=== PATIENT | female | born 1975 | race African-American/Black ===

== ENCOUNTER 2017-10-25 13:30 | Outpatient (RCR) | payer MEDICAID, SELFPAY ==
[2017-10-11 13:27] VITALS: BP 139/96; PULSE 70; RESP 18; TEMP 36.9; BMI 44.2
--- NOTE | 2017-10-11 17:35 | PCM.WC.HP ---
(1) Pressure ulcer of thigh, stage 2 Status: Acute Current Visit: Yes Code(s): L89.202 - Pressure ulcer of unspecified hip, stage 2 (2) Depression Status: Acute Current Visit: No Code(s): F32.9 - Major depressive disorder, single episode, unspecified (3) Spina bifida Status: Acute Current Visit: Yes Code(s): Q05.9 - Spina bifida, unspecified (4) Chronic venous insufficiency Status: Chronic Current Visit: Yes (5) HTN (hypertension) Status: Chronic Current Visit: Yes Code(s): I10 - Essential (primary) hypertension (6) Hypothyroidism Status: Chronic Current Visit: No Code(s): E03.9 - Hypothyroidism, unspecified (7) Obesity Status: Chronic Current Visit: Yes Code(s): E66.9 - Obesity, unspecified (8) Immobility Status: Acute Current Visit: Yes Code(s): Z74.09 - Other reduced mobility History of Present Illness Date of Service: 10/11/17 Chief Complaint: Wound on back of right thigh History of Wound: This is a 42-year-old -[place] female with a past medical history as described above presents to the wound care center with complaints of a wound on her back of her right thigh. The patient currently resides in a nursing facility due to her mobility issues. She states that she has had problems with this wound on and off for the past couple of years since 2013. Patient is a poor historian. SHe states that at the nursing facility, they have been using calmoseptine. She states that she attempts to be repositioned a couple times per night to keep pressure off of the site. She denies having a specialized low air loss mattress. She does have a chronic Cox in place. She denies any drainage, pain, or foul smell from the wound. She denies any systemic signs of infection. She denies any other associated or aggravating symptoms. Past Medical History Past Medical History: Chronic Problems Asthma (Chronic) Cellulitis, leg (Chronic) HTN (hypertension) (Chronic) Hypothyroidism (Chronic) Obesity (Chronic) Obstructive hydrocephalus (Chronic) Chronic venous insufficiency (Chronic) Allergies/Adverse Reactions: Allergies lisinopril Allergy (Verified 10/11/17 13:34) Other Home Medications: Ambulatory Orders Medication Instructions Recorded Ergocalciferol [Vitamin D] 50,000 unit PO Q7D 09/25/13 Montelukast [Singulair] 10 mg PO DAILY 09/25/13 Potassium Chloride [K-Dur] 20 meq PO DAILY 09/25/13 Oxycodone HCl/Acetaminophen 1 - 2 tablet PO Q4H PRN PRN #12 12/28/13 [Percocet 5/325] tablet AcetaAZOLAMIDE [Diamox] BID 10/11/17 Acetaminophen [Pain Relief] 500 mg PO PRN 10/11/17 Acidoph/L.bulg/Bif.b/S.thermop DAILY 10/11/17 [Bacid Caplet] Albuterol Inhaler [Ventolin Hfa] 10/11/17 Amlodipine/Benazepril [Lotrel 5 mg PO DAILY 10/11/17 10-20 MG Capsule] Cyanocobalamin [Vitamin B12] IM 10/11/17 Cyclobenzaprine HCl 10/11/17 Docusate Sodium [Colace Clear] 50 mg PO 10/11/17 Guaifenesin 400 mg PO 10/11/17 HydrOXYzine [Atarax] 20 mg PO BID 10/11/17 Loratadine 10 mg PO 10/11/17 Meloxicam 7.5 mg PO 10/11/17 Metoprolol Tartrate 25 mg PO 10/11/17 Ondansetron HCl [Zofran] 4 mg PO PRN 10/11/17 Oxybutynin Chloride [Ditropan Xl] 15 mg PO DAILY 10/11/17 Polyethylene Glycol 3350 [Miralax] PRN 10/11/17 Lives: Alf Smoking Status: Never smoker Alcohol: None Drugs: None Review of Systems Constitutional: Denies: Chills, Fever, Weight Change Eyes: Denies: Pain, Vision Change HEENT: Denies: Difficulty Hearing, Difficulty Swallowing, Sinus Congestion Cardiovascular: Denies: Chest Pain, Palpitations Respiratory: Denies: Cough, Shortness of Breath Gastrointestinal: Denies: Diarrhea, Nausea, Vomiting Genitourinary: Denies: Dysuria, Hematuria Skin: Reports: Wounds - See HPI Endocrine: Denies: Heat/ Cold Intolerance, Polydipsia, Polyuria Hematologic/ Lymphatic: Denies: Easy Bruising, Easy Bleeding - Physical Exam Vital Signs Temp Pulse Resp BP 98.4 F 70 18 139/96 H 10/11/17 13:27 10/11/17 13:27 10/11/17 13:27 10/11/17 13:27 General: Alert, Oriented x3, Cooperative, No apparent distress HEENT: PERRLA, EOMI Neck: Supple, No JVD, Negative Carotid Bruits Lungs: Clear to auscultation, Normal air movement Cardiovascular: Regular rate, Regular Rhythm Abdomen: Soft, Non Tender, Obese Extremities: No edema, Capillary Refill Less than 3 Seconds, Peripheral Pulses Normal Skin: Ulcer/ Wound Wound Measurements and Assessment WC - Nurse 1 - General Ulcer Measurement Start: 10/11/17 13:27 Freq: Status: Active Protocol: Activity Type Activity Date Activity User E-Sign Co-Sign Detail Recorded Client Recorded Date Recorded By Document 10/11/17 13:27 MW [id number] 10/11/17 13:49 MW 10/11/17 13:27 Wound Center Nurse 1 [Ulcer Assessment Protocol: MAURIZIO.WD.LOC] #1 RIGHT UPPER POST THIGH -Combined with other wound No -Current Size (cm) - Length 10.6 -Current Size (cm) - Width 6.8 -Current Size (cm) - Depth 0.1 -Total Square Cm 72.08 -Date of Last Picture (Recall this 10/11/17 field) -Photo Taken Yes -Epithelialization None Present -Tunneling No -Undermining/Tunneling No -Circular Undermining No -Exudate Amt None Present (0 %) -Wound Margin Flat & Intact -Granulation Amt Small (1-33%) -Granulation Quality [place] -Slough/Fibrin Yes -Necrosis Amt Medium (34-66%) -Necrotic Tissue Type Adherent Slough -Structure Exposed None/Limited to Skin Breakdown -Texture (Azul-wound Skin Appearance) Assessed Scarring -Moisture (Azul-wound Skin Appearance Assessed ) Dry/Scaly -Color (Azul-wound Skin Appearance) No Abnormality Assessed -Temperature (Azul-wound Skin No Abnormality Appearance) (Pt Warm) -Tenderness on Palpation (Azul-wound No Skin Appearance) -Ulcer Cleansing Rinsed/ Irrigated with Saline -Foul Odor after Cleansing No -Anesthetic Used 4% Lidocaine Solution [Edema Assessment] -Lower Limb Edema Present No WC - Nurse 2 - General Ulcer CM Notes Start: 10/11/17 13:27 Freq: Status: Active Protocol: Activity Type Activity Date Activity User E-Sign Co-Sign Detail Recorded Client Recorded Date Recorded By Document 10/11/17 14:40 DV [id number] 10/11/17 14:49 DV 10/11/17 14:40 Wound Center Nurse 2 [Procedure/Treatment] #1 RIGHT UPPER POST THIGH -Time 14:44 -Correct Patient Yes -Correct Side, Site, Position Yes -Correct Procedure Yes -Procedure Performed Yes -Type of Procedure Debridement -Clinical Debridement Subcutaneous -Post Debridement Size (cm) - Length 10.8 -Post Debridement Size (cm) - Width 7.0 -Post Debridement Size (cm) - Depth 0.1 -Total Square Cm 75.60 -Wound/Ulcer Outcome Not Healed -Ulcer Cleansing Rinsed/ Irrigated with Saline -Foul Odor after Cleansing No -Bioengineered Tissue No -Cetacaine [place] No -Bleeding Controlled with Pressure -Treatment Response Procedure Tolerated Well [See Physician Procedure note for Specifics] Pain Scale: 0-10 Numeric [Pain] -Is Patient Pain Free? Yes Musculoskeletal: - - Patient paralyzed on the right side, flaccid, weak on the left side Neurological: - - Patient is nonambulatory Psych/Mental Status: Normal Affect, Appropriate, Alert and oriented to time, place, person, mood and affect - Stage II cluster pressure ulcer of right posterior thigh present, no signs of infection at this time devitalized tissue present prior to debridement Debridement Note Post-Debridement Measurements/Treatment WC - Nurse 2 - General Ulcer CM Notes Start: 10/11/17 13:27 Freq: Status: Active Protocol: Activity Type Activity Date Activity User E-Sign Co-Sign Detail Recorded Client Recorded Date Recorded By Document 10/11/17 14:40 DV [id number] 10/11/17 14:49 DV 10/11/17 14:40 Wound Center Nurse 2 #1 RIGHT UPPER POST THIGH -Time 14:44 -Correct Patient Yes -Correct Side, Site, Position Yes -Correct Procedure Yes -Procedure Performed Yes -Type of Procedure Debridement -Clinical Debridement Subcutaneous -Post Debridement Size (cm) - Length 10.8 -Post Debridement Size (cm) - Width 7.0 -Post Debridement Size (cm) - Depth 0.1 -Total Square Cm 75.60 -Wound/Ulcer Outcome Not Healed -Ulcer Cleansing Rinsed/ Irrigated with Saline -Foul Odor after Cleansing No -Bioengineered Tissue No -Cetacaine [place] No -Bleeding Controlled with Pressure -Treatment Response Procedure Tolerated Well Pain Scale: 0-10 Numeric Is Patient Pain Free? Yes Wound debrided: Stage II cluster pressure ulcer right posterior thigh Laterality: Right Wound Grade/Stage: Stage II Type of Debridement: Excisional debridement Anesthesia Used: 4% Lidocaine Solution Depth: in the subcutaneous layer Percentage of wound debrided: 100 Instrument Used: 5mm curette Tissue Removed: Fibrin slough and devitalized tissue Severity: Fat Layer Exposed Amount of bleeding with debridement: Mild Bleeding Controlled with: Pressure Patient tolerated procedure well Assessment/Plan Active Problems HTN (hypertension) (Chronic) Obesity (Chronic) Chronic venous insufficiency (Chronic) Pressure ulcer of thigh, stage 2 (Acute) Spina bifida (Acute) Immobility (Acute) Plan: The patient was seen and evaluated in the wound center today and updated on her plan of care. She does have a stage II pressure ulcer of the right posterior thigh. Subcutaneous excisional debridement was performed today. She would benefit from having a low air loss mattress or gel mattress at the nursing facility where she resides. Would also benefit from offloading with frequent repositioning changes at least hourly and every 2 hours at night. Baseline blood work ordered. Site will be dressed with hydrogel, Adaptic, and optofoam daily. Discussed with patient the importance of adequate nutrition intake. She currently states that she does not eat a lot due to not liking the food at the alf. 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 Based on pending labs, may need a nutrition referral and Max supplement. This note was generated with [employer] dictation software. It may contain incorrect words, spelling, and punctuation that were not noted in checking the note before signing.
--- NOTE | 2017-10-11 17:45 | HP.PCM_ITS ---
(1) Pressure ulcer of thigh, stage 2 Status: Acute Current Visit: Yes Code(s): L89.202 - Pressure ulcer of unspecified hip, stage 2 (2) Depression Status: Acute Current Visit: No Code(s): F32.9 - Major depressive disorder, single episode, unspecified (3) Spina bifida Status: Acute Current Visit: Yes Code(s): Q05.9 - Spina bifida, unspecified (4) Chronic venous insufficiency Status: Chronic Current Visit: Yes (5) HTN (hypertension) Status: Chronic Current Visit: Yes Code(s): I10 - Essential (primary) hypertension (6) Hypothyroidism Status: Chronic Current Visit: No Code(s): E03.9 - Hypothyroidism, unspecified (7) Obesity Status: Chronic Current Visit: Yes Code(s): E66.9 - Obesity, unspecified (8) Immobility Status: Acute Current Visit: Yes Code(s): Z74.09 - Other reduced mobility History of Present Illness Date of Service: 10/11/17 Chief Complaint: Wound on back of right thigh History of Wound: This is a 42-year-old -[place] female with a past medical history as described above presents to the wound care center with complaints of a wound on her back of her right thigh. The patient currently resides in a nursing facility due to her mobility issues. She states that she has had problems with this wound on and off for the past couple of years since 2013. Patient is a poor historian. SHe states that at the nursing facility, they have been using calmoseptine. She states that she attempts to be repositioned a couple times per night to keep pressure off of the site. She denies having a specialized low air loss mattress. She does have a chronic Cox in place. She denies any drainage, pain, or foul smell from the wound. She denies any systemic signs of infection. She denies any other associated or aggravating symptoms. Past Medical History Past Medical History: Chronic Problems Asthma (Chronic) Cellulitis, leg (Chronic) HTN (hypertension) (Chronic) Hypothyroidism (Chronic) Obesity (Chronic) Obstructive hydrocephalus (Chronic) Chronic venous insufficiency (Chronic) Allergies/Adverse Reactions: Allergies lisinopril Allergy (Verified 10/11/17 13:34) Other Home Medications: Ambulatory Orders Medication Instructions Recorded Ergocalciferol [Vitamin D] 50,000 unit PO Q7D 09/25/13 Montelukast [Singulair] 10 mg PO DAILY 09/25/13 Potassium Chloride [K-Dur] 20 meq PO DAILY 09/25/13 Oxycodone HCl/Acetaminophen 1 - 2 tablet PO Q4H PRN PRN #12 12/28/13 [Percocet 5/325] tablet AcetaAZOLAMIDE [Diamox] BID 10/11/17 Acetaminophen [Pain Relief] 500 mg PO PRN 10/11/17 Acidoph/L.bulg/Bif.b/S.thermop DAILY 10/11/17 [Bacid Caplet] Albuterol Inhaler [Ventolin Hfa] 10/11/17 Amlodipine/Benazepril [Lotrel 5 mg PO DAILY 10/11/17 10-20 MG Capsule] Cyanocobalamin [Vitamin B12] IM 10/11/17 Cyclobenzaprine HCl 10/11/17 Docusate Sodium [Colace Clear] 50 mg PO 10/11/17 Guaifenesin 400 mg PO 10/11/17 HydrOXYzine [Atarax] 20 mg PO BID 10/11/17 Loratadine 10 mg PO 10/11/17 Meloxicam 7.5 mg PO 10/11/17 Metoprolol Tartrate 25 mg PO 10/11/17 Ondansetron HCl [Zofran] 4 mg PO PRN 10/11/17 Oxybutynin Chloride [Ditropan Xl] 15 mg PO DAILY 10/11/17 Polyethylene Glycol 3350 [Miralax] PRN 10/11/17 Lives: Long-Term Smoking Status: Never smoker Alcohol: None Drugs: None Review of Systems Constitutional: Denies: Chills, Fever, Weight Change Eyes: Denies: Pain, Vision Change HEENT: Denies: Difficulty Hearing, Difficulty Swallowing, Sinus Congestion Cardiovascular: Denies: Chest Pain, Palpitations Respiratory: Denies: Cough, Shortness of Breath Gastrointestinal: Denies: Diarrhea, Nausea, Vomiting Genitourinary: Denies: Dysuria, Hematuria Skin: Reports: Wounds - See HPI Endocrine: Denies: Heat/ Cold Intolerance, Polydipsia, Polyuria Hematologic/ Lymphatic: Denies: Easy Bruising, Easy Bleeding - Physical Exam Vital Signs Temp Pulse Resp BP 98.4 F 70 18 139/96 H 10/11/17 13:27 10/11/17 13:27 10/11/17 13:27 10/11/17 13:27 General: Alert, Oriented x3, Cooperative, No apparent distress HEENT: PERRLA, EOMI Neck: Supple, No JVD, Negative Carotid Bruits Lungs: Clear to auscultation, Normal air movement Cardiovascular: Regular rate, Regular Rhythm Abdomen: Soft, Non Tender, Obese Extremities: No edema, Capillary Refill Less than 3 Seconds, Peripheral Pulses Normal Skin: Ulcer/ Wound Wound Measurements and Assessment WC - Nurse 1 - General Ulcer Measurement Start: 10/11/17 13:27 Freq: Status: Active Protocol: Activity Type Activity Date Activity User E-Sign Co-Sign Detail Recorded Client Recorded Date Recorded By Document 10/11/17 13:27 MW [id number] 10/11/17 13:49 MW 10/11/17 13:27 Wound Center Nurse 1 [Ulcer Assessment Protocol: MAURIZIO.WD.LOC] #1 RIGHT UPPER POST THIGH -Combined with other wound No -Current Size (cm) - Length 10.6 -Current Size (cm) - Width 6.8 -Current Size (cm) - Depth 0.1 -Total Square Cm 72.08 -Date of Last Picture (Recall this 10/11/17 field) -Photo Taken Yes -Epithelialization None Present -Tunneling No -Undermining/Tunneling No -Circular Undermining No -Exudate Amt None Present (0 %) -Wound Margin Flat & Intact -Granulation Amt Small (1-33%) -Granulation Quality [employer] -Slough/Fibrin Yes -Necrosis Amt Medium (34-66%) -Necrotic Tissue Type Adherent Slough -Structure Exposed None/Limited to Skin Breakdown -Texture (Azul-wound Skin Appearance) Assessed Scarring -Moisture (Azul-wound Skin Appearance Assessed ) Dry/Scaly -Color (Azul-wound Skin Appearance) No Abnormality Assessed -Temperature (Azul-wound Skin No Abnormality Appearance) (Pt Warm) -Tenderness on Palpation (Azul-wound No Skin Appearance) -Ulcer Cleansing Rinsed/ Irrigated with Saline -Foul Odor after Cleansing No -Anesthetic Used 4% Lidocaine Solution [Edema Assessment] -Lower Limb Edema Present No WC - Nurse 2 - General Ulcer CM Notes Start: 10/11/17 13:27 Freq: Status: Active Protocol: Activity Type Activity Date Activity User E-Sign Co-Sign Detail Recorded Client Recorded Date Recorded By Document 10/11/17 14:40 DV [id number] 10/11/17 14:49 DV 10/11/17 14:40 Wound Center Nurse 2 [Procedure/Treatment] #1 RIGHT UPPER POST THIGH -Time 14:44 -Correct Patient Yes -Correct Side, Site, Position Yes -Correct Procedure Yes -Procedure Performed Yes -Type of Procedure Debridement -Clinical Debridement Subcutaneous -Post Debridement Size (cm) - Length 10.8 -Post Debridement Size (cm) - Width 7.0 -Post Debridement Size (cm) - Depth 0.1 -Total Square Cm 75.60 -Wound/Ulcer Outcome Not Healed -Ulcer Cleansing Rinsed/ Irrigated with Saline -Foul Odor after Cleansing No -Bioengineered Tissue No -Cetacaine [place] No -Bleeding Controlled with Pressure -Treatment Response Procedure Tolerated Well [See Physician Procedure note for Specifics] Pain Scale: 0-10 Numeric [Pain] -Is Patient Pain Free? Yes Musculoskeletal: - - Patient paralyzed on the right side, flaccid, weak on the left side Neurological: - - Patient is nonambulatory Psych/Mental Status: Normal Affect, Appropriate, Alert and oriented to time, place, person, mood and affect - Stage II cluster pressure ulcer of right posterior thigh present, no signs of infection at this time devitalized tissue present prior to debridement Debridement Note Post-Debridement Measurements/Treatment WC - Nurse 2 - General Ulcer CM Notes Start: 10/11/17 13:27 Freq: Status: Active Protocol: Activity Type Activity Date Activity User E-Sign Co-Sign Detail Recorded Client Recorded Date Recorded By Document 10/11/17 14:40 DV [id number] 10/11/17 14:49 DV 10/11/17 14:40 Wound Center Nurse 2 #1 RIGHT UPPER POST THIGH -Time 14:44 -Correct Patient Yes -Correct Side, Site, Position Yes -Correct Procedure Yes -Procedure Performed Yes -Type of Procedure Debridement -Clinical Debridement Subcutaneous -Post Debridement Size (cm) - Length 10.8 -Post Debridement Size (cm) - Width 7.0 -Post Debridement Size (cm) - Depth 0.1 -Total Square Cm 75.60 -Wound/Ulcer Outcome Not Healed -Ulcer Cleansing Rinsed/ Irrigated with Saline -Foul Odor after Cleansing No -Bioengineered Tissue No -Cetacaine [place] No -Bleeding Controlled with Pressure -Treatment Response Procedure Tolerated Well Pain Scale: 0-10 Numeric Is Patient Pain Free? Yes Wound debrided: Stage II cluster pressure ulcer right posterior thigh Laterality: Right Wound Grade/Stage: Stage II Type of Debridement: Excisional debridement Anesthesia Used: 4% Lidocaine Solution Depth: in the subcutaneous layer Percentage of wound debrided: 100 Instrument Used: 5mm curette Tissue Removed: Fibrin slough and devitalized tissue Severity: Fat Layer Exposed Amount of bleeding with debridement: Mild Bleeding Controlled with: Pressure Patient tolerated procedure well Assessment/Plan Active Problems HTN (hypertension) (Chronic) Obesity (Chronic) Chronic venous insufficiency (Chronic) Pressure ulcer of thigh, stage 2 (Acute) Spina bifida (Acute) Immobility (Acute) Plan: The patient was seen and evaluated in the wound center today and updated on her plan of care. She does have a stage II pressure ulcer of the right posterior thigh. Subcutaneous excisional debridement was performed today. She would benefit from having a low air loss mattress or gel mattress at the nursing facility where she resides. Would also benefit from offloading with frequent repositioning changes at least hourly and every 2 hours at night. Baseline blood work ordered. Site will be dressed with hydrogel, Adaptic, and optofoam daily. Discussed with patient the importance of adequate nutrition intake. She currently states that she does not eat a lot due to not liking the food at the [facility]. Encouraged her to pickle maker some protein drinks. Based on pending labs, may need a nutrition referral and Max supplement. This note was generated with [employer] dictation software. It may contain incorrect words, spelling, and punctuation that were not noted in checking the note before signing.
[2017-10-25 13:29] VITALS: BP 131/67; PULSE 63; RESP 20; TEMP 36.4; BMI 44.2
--- NOTE | 2017-10-25 16:12 | PCM.WC.PN ---
(1) Pressure ulcer of thigh, stage 2 Status: Acute Current Visit: Yes Qualifiers: Laterality: right Qualified Code(s): L89.212 - Pressure ulcer of right hip, stage 2 Code(s): L89.202 - Pressure ulcer of unspecified hip, stage 2 (2) Depression Status: Acute Current Visit: No Code(s): F32.9 - Major depressive disorder, single episode, unspecified (3) Spina bifida Status: Acute Current Visit: Yes Code(s): Q05.9 - Spina bifida, unspecified (4) Chronic venous insufficiency Status: Chronic Current Visit: Yes (5) HTN (hypertension) Status: Chronic Current Visit: Yes Code(s): I10 - Essential (primary) hypertension (6) Hypothyroidism Status: Chronic Current Visit: No Code(s): E03.9 - Hypothyroidism, unspecified (7) Obesity Status: Chronic Current Visit: Yes Code(s): E66.9 - Obesity, unspecified (8) Immobility Status: Acute Current Visit: Yes Code(s): Z74.09 - Other reduced mobility Type of Wound Date of Service: 10/25/17 Chief Complaint: Wound on back of right thigh History of Wound: This is a 42-year-old -Citizen Of [place] female with a past medical history as described above presents to the wound care center with complaints of a wound on her back of her right thigh. The patient currently resides in a nursing facility due to her mobility issues. She states that she has had problems with this wound on and off for the past couple of years since 2013. Patient is a poor historian. SHe states that at the nursing facility, they have been using calmoseptine. She states that she attempts to be repositioned a couple times per night to keep pressure off of the site. She denies having a specialized low air loss mattress. She does have a chronic suprapubic catheter in place. She denies any drainage, pain, or foul smell from the wound. She denies any systemic signs of infection. She denies any other associated or aggravating symptoms. Progress of Wound: Stable, improving. Patient did miss her last wound center appointment due to transportation issues. Patient does state that there is no pain at the site. - Physical Exam Vital Signs Temp Pulse Resp BP 97.5 F L 63 20 H 131/67 H 10/25/17 13:29 10/25/17 13:29 10/25/17 13:29 10/25/17 13:29 General: Alert, Oriented x3, Cooperative, No apparent distress Cardiovascular: Regular rate Extremities: No clubbing, No cyanosis Skin: Ulcer/ Wound - Stage II pressure ulcer right posterior thigh, no purulent drainage or foul-smelling exudate noted, moderate amount of slough present Wound Measurements and Assessment WC - Nurse 1 - General Ulcer Measurement Start: 10/11/17 13:27 Freq: Status: Active Protocol: Activity Type Activity Date Activity User E-Sign Co-Sign Detail Recorded Client Recorded Date Recorded By Document 10/25/17 13:29 DL [id number] 10/25/17 13:39 DL 10/25/17 13:29 Wound Center Nurse 1 [Ulcer Assessment Protocol: WC.WD.LOC] #5 RIGHT UPPER POST THIGH -Current Size (cm) - Length 3.8 -Current Size (cm) - Width 4 -Current Size (cm) - Depth 0.1 -Total Square Cm 15.2 -Photo Taken No -Exudate Amt None Present (0 %) -Wound Margin Flat & Intact -Granulation Amt Large (67-100%) -Granulation Quality [place] -Necrosis Amt Small (1-33%) -Necrotic Tissue Type Adherent Slough -Structure Exposed N/A -Texture (Azul-wound Skin Appearance) Scarring -Moisture (Azul-wound Skin Appearance Dry/Scaly ) -Color (Azul-wound Skin Appearance) No Abnormality -Temperature (Azul-wound Skin No Abnormality Appearance) (Pt Warm) -Ulcer Cleansing Rinsed/ Irrigated with Saline -Foul Odor after Cleansing No -Anesthetic Used 4% Lidocaine Solution WC - Nurse 2 - General Ulcer CM Notes Start: 10/11/17 13:27 Freq: Status: Active Protocol: Activity Type Activity Date Activity User E-Sign Co-Sign Detail Recorded Client Recorded Date Recorded By Document 10/25/17 15:15 DV [id number] 10/25/17 15:22 DV 10/25/17 15:15 Wound Center Nurse 2 [Procedure/Treatment] -Time 15:17 -Correct Patient Yes -Correct Side, Site, Position Yes -Correct Procedure Yes -Procedure Performed Yes -Type of Procedure Debridement -Clinical Debridement Subcutaneous -Post Debridement Size (cm) - Length 5.1 -Post Debridement Size (cm) - Width 6.0 -Post Debridement Size (cm) - Depth 0.1 -Total Square Cm 30.60 -Wound/Ulcer Outcome Not Healed -Ulcer Cleansing Rinsed/ Irrigated with Saline -Foul Odor after Cleansing No -Bioengineered Tissue No -Cetacaine [place] No -Bleeding Controlled with Pressure -Treatment Response Procedure Tolerated Well [See Physician Procedure note for Specifics] Pain Scale: 0-10 Numeric [Pain] -Is Patient Pain Free? Yes Psych/Mental Status: Normal Affect, Appropriate, Alert and oriented to time, place, person, mood and affect Debridement Note Post-Debridement Measurements/Treatment WC - Nurse 2 - General Ulcer CM Notes Start: 10/11/17 13:27 Freq: Status: Active Protocol: Activity Type Activity Date Activity User E-Sign Co-Sign Detail Recorded Client Recorded Date Recorded By Document 10/11/17 14:40 DV [id number] 10/11/17 14:49 DV Document 10/25/17 15:15 DV [id number] 10/25/17 15:22 DV 10/11/17 10/25/17 14:40 15:15 Wound Center Nurse 2 #5 RIGHT UPPER POST THIGH -Time 14:44 15:17 -Correct Patient Yes Yes -Correct Side, Site, Position Yes Yes -Correct Procedure Yes Yes -Procedure Performed Yes Yes -Type of Procedure Debridement Debridement -Clinical Debridement Subcutaneous Subcutaneous -Post Debridement Size (cm) - Length 10.8 5.1 -Post Debridement Size (cm) - Width 7.0 6.0 -Post Debridement Size (cm) - Depth 0.1 0.1 -Total Square Cm 75.60 30.60 -Wound/Ulcer Outcome Not Healed Not Healed -Ulcer Cleansing Rinsed/ Rinsed/ Irrigated with Irrigated with Saline Saline -Foul Odor after Cleansing No No -Bioengineered Tissue No No -Cetacaine [place] No No -Bleeding Controlled with Pressure Pressure -Treatment Response Procedure Procedure Tolerated Well Tolerated Well Pain Scale: 0-10 Numeric Is Patient Pain Free? Yes Yes Wound debrided: Posterior thigh Laterality: Right Wound Grade/Stage: Stage II Anesthesia Used: 5% Lidocaine Gel Depth: Down to and including healthy tissue, in the subcutaneous layer Percentage of wound debrided: 100 Instrument Used: 5mm curette Tissue Removed: Slough and fibrinous devitalized tissue Severity: Fat Layer Exposed Amount of bleeding with debridement: Mild Bleeding Controlled with: Pressure Patient tolerated procedure well Assessment/Plan Active Problems HTN (hypertension) (Chronic) Obesity (Chronic) Chronic venous insufficiency (Chronic) Pressure ulcer of thigh, stage 2 (Acute) Spina bifida (Acute) Immobility (Acute) Assessment: Wound is stable and improving Plan: The patient was seen and evaluated in the wound center today and updated on her plan of care. She does have a stage II pressure ulcer of the right posterior thigh. Subcutaneous excisional debridement was performed today. She would benefit from having a low air loss mattress or gel mattress at the nursing facility where she resides. Would also benefit from offloading with frequent repositioning changes at least hourly and every 2 hours at night. Baseline blood work reviewed and stable. Site will be dressed with hydrogel and optofoam daily. Discussed with patient the importance of adequate nutrition intake. She currently states that she does not eat a lot due to not liking the food at the senior care, pre-albumin was normal however. Wound cultures were collected previously and reviewed and showed positive for staph. Will treat with a course of Bactrim DS. Patient was previously on Rocephin IV for chronic UTI, however has been off of this antibiotic for 2-1/2 weeks now. Did discuss with patient how her bowel incontinence can negatively impact wound healing. Discussed also the impact of skin shearing and that she may benefit from the use of incontinence chucks rather than the incontinence briefs that have been shearing her skin. She will follow-up in 1 week with the wound care center. This note was generated with [employer] dictation software. It may contain incorrect words, spelling, and punctuation that were not noted in checking the note before signing. Code Visit 111xxx-113xx: 49114 Jennifer subq tissue 20 sq cm/< Add On Codes: [id number] Jennifer subq tissue add-on
--- NOTE | 2017-10-26 16:21 | PN.PCM_ITS ---
(1) Pressure ulcer of thigh, stage 2 Status: Acute Current Visit: Yes Qualifiers: Laterality: right Qualified Code(s): L89.212 - Pressure ulcer of right hip , stage 2 Code(s): L89.202 - Pressure ulcer of unspecified hip, stage 2 (2) Depression Status: Acute Current Visit: No Code(s): F32.9 - Major depressive disorder, single episode, unspecified (3) Spina bifida Status: Acute Current Visit: Yes Code(s): Q05.9 - Spina bifida, unspecified (4) Chronic venous insufficiency Status: Chronic Current Visit: Yes (5) HTN (hypertension) Status: Chronic Current Visit: Yes Code(s): I10 - Essential (primary) hypertension (6) Hypothyroidism Status: Chronic Current Visit: No Code(s): E03.9 - Hypothyroidism, unspecified (7) Obesity Status: Chronic Current Visit: Yes Code(s): E66.9 - Obesity, unspecified (8) Immobility Status: Acute Current Visit: Yes Code(s): Z74.09 - Other reduced mobility Type of Wound Date of Service: 10/25/17 Chief Complaint: Wound on back of right thigh History of Wound: This is a 42-year-old -[place] female with a past medical history as described above presents to the wound care center with complaints of a wound on her back of her right thigh. The patient currently resides in a nursing facility due to her mobility issues. She states that she has had problems with this wound on and off for the past couple of years since 2013. Patient is a poor historian. SHe states that at the nursing facility, they have been using calmoseptine. She states that she attempts to be repositioned a couple times per night to keep pressure off of the site. She denies having a specialized low air loss mattress. She does have a chronic suprapubic catheter in place. She denies any drainage, pain, or foul smell from the wound. She denies any systemic signs of infection. She denies any other associated or aggravating symptoms. Progress of Wound: Stable, improving. Patient did miss her last wound center appointment due to transportation issues. Patient does state that there is no pain at the site. - Physical Exam Vital Signs Temp Pulse Resp BP 97.5 F L 63 20 H 131/67 H 10/25/17 13:29 10/25/17 13:29 10/25/17 13:29 10/25/17 13:29 General: Alert, Oriented x3, Cooperative, No apparent distress Cardiovascular: Regular rate Extremities: No clubbing, No cyanosis Skin: Ulcer/ Wound - Stage II pressure ulcer right posterior thigh, no purulent drainage or foul-smelling exudate noted, moderate amount of slough present Wound Measurements and Assessment WC - Nurse 1 - General Ulcer Measurement Start: 10/11/17 13:27 Freq: Status: Active Protocol: Activity Type Activity Date Activity User E-Sign Co-Sign Detail Recorded Client Recorded Date Recorded By Document 10/25/17 13:29 DL [id number] 10/25/17 13:39 DL 10/25/17 13:29 Wound Center Nurse 1 [Ulcer Assessment Protocol: WC.WD.LOC] #5 RIGHT UPPER POST THIGH -Current Size (cm) - Length 3.8 -Current Size (cm) - Width 4 -Current Size (cm) - Depth 0.1 -Total Square Cm 15.2 -Photo Taken No -Exudate Amt None Present (0 %) -Wound Margin Flat & Intact -Granulation Amt Large (67-100%) -Granulation Quality [place] -Necrosis Amt Small (1-33%) -Necrotic Tissue Type Adherent Slough -Structure Exposed N/A -Texture (Azul-wound Skin Appearance) Scarring -Moisture (Azul-wound Skin Appearance Dry/Scaly ) -Color (Azul-wound Skin Appearance) No Abnormality -Temperature (Azul-wound Skin No Abnormality Appearance) (Pt Warm) -Ulcer Cleansing Rinsed/ Irrigated with Saline -Foul Odor after Cleansing No -Anesthetic Used 4% Lidocaine Solution WC - Nurse 2 - General Ulcer CM Notes Start: 10/11/17 13:27 Freq: Status: Active Protocol: Activity Type Activity Date Activity User E-Sign Co-Sign Detail Recorded Client Recorded Date Recorded By Document 10/25/17 15:15 DV [id number] 10/25/17 15:22 DV 10/25/17 15:15 Wound Center Nurse 2 [Procedure/Treatment] -Time 15:17 -Correct Patient Yes -Correct Side, Site, Position Yes -Correct Procedure Yes -Procedure Performed Yes -Type of Procedure Debridement -Clinical Debridement Subcutaneous -Post Debridement Size (cm) - Length 5.1 -Post Debridement Size (cm) - Width 6.0 -Post Debridement Size (cm) - Depth 0.1 -Total Square Cm 30.60 -Wound/Ulcer Outcome Not Healed -Ulcer Cleansing Rinsed/ Irrigated with Saline -Foul Odor after Cleansing No -Bioengineered Tissue No -Cetacaine [place] No -Bleeding Controlled with Pressure -Treatment Response Procedure Tolerated Well [See Physician Procedure note for Specifics] Pain Scale: 0-10 Numeric [Pain] -Is Patient Pain Free? Yes Psych/Mental Status: Normal Affect, Appropriate, Alert and oriented to time, place, person, mood and affect Debridement Note Post-Debridement Measurements/Treatment WC - Nurse 2 - General Ulcer CM Notes Start: 10/11/17 13:27 Freq: Status: Active Protocol: Activity Type Activity Date Activity User E-Sign Co-Sign Detail Recorded Client Recorded Date Recorded By Document 10/11/17 14:40 DV [id number] 10/11/17 14:49 DV Document 10/25/17 15:15 DV [id number] 10/25/17 15:22 DV 10/11/17 10/25/17 14:40 15:15 Wound Center Nurse 2 #5 RIGHT UPPER POST THIGH -Time 14:44 15:17 -Correct Patient Yes Yes -Correct Side, Site, Position Yes Yes -Correct Procedure Yes Yes -Procedure Performed Yes Yes -Type of Procedure Debridement Debridement -Clinical Debridement Subcutaneous Subcutaneous -Post Debridement Size (cm) - Length 10.8 5.1 -Post Debridement Size (cm) - Width 7.0 6.0 -Post Debridement Size (cm) - Depth 0.1 0.1 -Total Square Cm 75.60 30.60 -Wound/Ulcer Outcome Not Healed Not Healed -Ulcer Cleansing Rinsed/ Rinsed/ Irrigated with Irrigated with Saline Saline -Foul Odor after Cleansing No No -Bioengineered Tissue No No -Cetacaine [place] No No -Bleeding Controlled with Pressure Pressure -Treatment Response Procedure Procedure Tolerated Well Tolerated Well Pain Scale: 0-10 Numeric Is Patient Pain Free? Yes Yes Wound debrided: Posterior thigh Laterality: Right Wound Grade/Stage: Stage II Anesthesia Used: 5% Lidocaine Gel Depth: Down to and including healthy tissue, in the subcutaneous layer Percentage of wound debrided: 100 Instrument Used: 5mm curette Tissue Removed: Slough and fibrinous devitalized tissue Severity: Fat Layer Exposed Amount of bleeding with debridement: Mild Bleeding Controlled with: Pressure Patient tolerated procedure well Assessment/Plan Active Problems HTN (hypertension) (Chronic) Obesity (Chronic) Chronic venous insufficiency (Chronic) Pressure ulcer of thigh, stage 2 (Acute) Spina bifida (Acute) Immobility (Acute) Assessment: Wound is stable and improving Plan: The patient was seen and evaluated in the wound center today and updated on her plan of care. She does have a stage II pressure ulcer of the right posterior thigh. Subcutaneous excisional debridement was performed today. She would benefit from having a low air loss mattress or gel mattress at the nursing facility where she resides. Would also benefit from offloading with frequent repositioning changes at least hourly and every 2 hours at night. Baseline blood work reviewed and stable. Site will be dressed with hydrogel and optofoam daily. Discussed with patient the importance of adequate nutrition intake. She currently states that she does not eat a lot due to not liking the food at the long-term, pre-albumin was normal however. Wound cultures were collected previously and reviewed and showed positive for staph. Will treat with a course of Bactrim DS. Patient was previously on Rocephin IV for chronic UTI, however has been off of this antibiotic for 2-1/2 weeks now. Did discuss with patient how her bowel incontinence can negatively impact wound healing. Discussed also the impact of skin shearing and that she may benefit from the use of incontinence chucks rather than the incontinence briefs that have been shearing her skin. She will follow-up in 1 week with the wound care center. This note was generated with [email or web address] dictation software. It may contain incorrect words, spelling, and punctuation that were not noted in checking the note before signing. Code Visit 111xxx-113xx: 64438 Jennifer subq tissue 20 sq cm/< Add On Codes: [id number] Jennifer subq tissue add-on
== END 2017-10-31 23:59 ==
LOC: WC 13:30
PROVIDERS: Family Provider Family Medicine; PCP Family Medicine; Visit Provider Nurse Practitioner Family
DX: L89.212 Pressure ulcer of right hip, stage 2 (principal); F32.9 Major depressive disorder, single episode, unspecified; Q05.9 Spina bifida, unspecified; I10 Essential (primary) hypertension; E03.9 Hypothyroidism, unspecified; I87.2 Venous insufficiency (chronic) (peripheral); E66.9 Obesity, unspecified; Z68.41 Body mass index [BMI] 40.0-44.9, adult; Z71.3 Dietary counseling and surveillance; Z74.09 Other reduced mobility; Z87.440 Personal history of urinary (tract) infections; R15.9 Full incontinence of feces; B95.8 Unspecified staphylococcus as the cause of diseases classified elsewhere
CPT/HCPCS: 11042; 11045; 87070; 87075; 87077; 87186; 87205; 99213; G0463

== ENCOUNTER 2017-11-22 14:30 | Outpatient (RCR) | payer MEDICAID, SELFPAY ==
[2017-10-25 13:29] VITALS: BP 131/67
[2017-11-01 01:07] VITALS: PULSE 63; RESP 20; TEMP 36.4
[2017-11-01 14:53] VITALS: BP 124/97; PULSE 77; RESP 16; TEMP 36.6; BMI 44.2
--- NOTE | 2017-11-01 15:10 | PCM.WC.PN ---
(1) Pressure ulcer of thigh, stage 2 Status: Acute Current Visit: Yes Qualifiers: Laterality: right Code(s): L89.202 - Pressure ulcer of unspecified hip, stage 2 Comment: Fat layer exposed (2) Depression Status: Acute Current Visit: No Code(s): F32.9 - Major depressive disorder, single episode, unspecified (3) Immobility Status: Acute Current Visit: Yes Code(s): Z74.09 - Other reduced mobility (4) Spina bifida Status: Acute Current Visit: No Code(s): Q05.9 - Spina bifida, unspecified (5) Chronic venous insufficiency Status: Chronic Current Visit: Yes (6) HTN (hypertension) Status: Chronic Current Visit: Yes Code(s): I10 - Essential (primary) hypertension (7) Hypothyroidism Status: Chronic Current Visit: No Code(s): E03.9 - Hypothyroidism, unspecified (8) Obesity Status: Chronic Current Visit: No Code(s): E66.9 - Obesity, unspecified Type of Wound Date of Service: 11/01/17 Chief Complaint: Wound on back of right thigh History of Wound: This is a 42-year-old -[place] female with a past medical history as described above presents to the wound care center with complaints of a wound on her back of her right thigh. The patient currently resides in a nursing facility due to her mobility issues. She states that she has had problems with this wound on and off for the past couple of years since 2013. Patient is a poor historian. SHe states that at the nursing facility, they have been using calmoseptine. She states that she attempts to be repositioned a couple times per night to keep pressure off of the site. She denies having a specialized low air loss mattress. She does have a chronic suprapubic catheter in place. She denies any drainage, pain, or foul smell from the wound. She denies any systemic signs of infection. She denies any other associated or aggravating symptoms. Progress of Wound: Stable, improving. Patient does state that there is no pain at the site. - Physical Exam Vital Signs Temp Pulse Resp BP 98 F 77 16 124/97 H 11/01/17 14:53 11/01/17 14:53 11/01/17 14:53 11/01/17 14:53 General: Alert, Oriented x3, Cooperative, No apparent distress HEENT: PERRLA, EOMI Cardiovascular: Regular rate Extremities: No cyanosis, No edema Skin: Ulcer/ Wound Wound Measurements and Assessment - Nurse 1 - General Ulcer Measurement Start: 11/01/17 14:52 Freq: Status: Active Protocol: Activity Type Activity Date Activity User E-Sign Co-Sign Detail Recorded Client Recorded Date Recorded By Document 11/01/17 14:53 DL [id number] 11/01/17 14:55 DL 11/01/17 14:53 Wound Center Nurse 1 [Ulcer Assessment Protocol: WC.WD.LOC] #5 RIGHT UPPER POST THIGH -Current Size (cm) - Length 3.2 -Current Size (cm) - Width 3.2 -Current Size (cm) - Depth 0.1 -Total Square Cm 10.24 -Photo Taken No -Exudate Amt Small (1-33%) -Exudate Type Serosanguineous -Wound Margin Flat & Intact -Granulation Amt Large (67-100%) -Granulation Quality [place] -Necrosis Amt Small (1-33%) -Necrotic Tissue Type Adherent Slough -Structure Exposed N/A -Texture (Azul-wound Skin Appearance) Scarring -Moisture (Azul-wound Skin Appearance Dry/Scaly ) -Color (Azul-wound Skin Appearance) No Abnormality -Temperature (Azul-wound Skin No Abnormality Appearance) (Pt Warm) -Ulcer Cleansing Wound Cleanser -Foul Odor after Cleansing No -Anesthetic Used 4% Lidocaine Solution [facility] Nurse 2 - General Ulcer CM Notes Start: 11/01/17 14:52 Freq: Status: Active Protocol: Activity Type Activity Date Activity User E-Sign Co-Sign Detail Recorded Client Recorded Date Recorded By Document 11/01/17 15:30 DV [id number] 11/01/17 15:31 DV 11/01/17 15:30 Wound Center Nurse 2 [Procedure/Treatment] -Time 15:31 -Correct Patient Yes -Correct Side, Site, Position Yes -Correct Procedure Yes -Procedure Performed Yes -Type of Procedure Debridement -Clinical Debridement Subcutaneous -Post Debridement Size (cm) - Length 5.0 -Post Debridement Size (cm) - Width 1.5 -Post Debridement Size (cm) - Depth 0.1 -Total Square Cm 7.50 -Wound/Ulcer Outcome Not Healed -Ulcer Cleansing Rinsed/ Irrigated with Saline -Foul Odor after Cleansing No -Bioengineered Tissue No -Cetacaine [place] No -Bleeding Controlled with Pressure -Treatment Response Procedure Tolerated Well [See Physician Procedure note for Specifics] Pain Scale: 0-10 Numeric [Pain] -Is Patient Pain Free? Yes Psych/Mental Status: Alert and oriented to time, place, person, mood and affect - Stage II pressure ulcer right posterior thigh moderate amount of slough present, no drainage or exudate noted Debridement Note Post-Debridement Measurements/Treatment WC - Nurse 2 - General Ulcer CM Notes Start: 11/01/17 14:52 Freq: Status: Active Protocol: Activity Type Activity Date Activity User E-Sign Co-Sign Detail Recorded Client Recorded Date Recorded By Document 11/01/17 15:30 DV [id number] 11/01/17 15:31 DV 11/01/17 15:30 Wound Center Nurse 2 #5 RIGHT UPPER POST THIGH -Time 15:31 -Correct Patient Yes -Correct Side, Site, Position Yes -Correct Procedure Yes -Procedure Performed Yes -Type of Procedure Debridement -Clinical Debridement Subcutaneous -Post Debridement Size (cm) - Length 5.0 -Post Debridement Size (cm) - Width 1.5 -Post Debridement Size (cm) - Depth 0.1 -Total Square Cm 7.50 -Wound/Ulcer Outcome Not Healed -Ulcer Cleansing Rinsed/ Irrigated with Saline -Foul Odor after Cleansing No -Bioengineered Tissue No -Cetacaine [place] No -Bleeding Controlled with Pressure -Treatment Response Procedure Tolerated Well Pain Scale: 0-10 Numeric Is Patient Pain Free? Yes Wound debrided: Stage II pressure ulcer right posterior thigh Laterality: Right Wound Grade/Stage: Stage II Type of Debridement: Excisional debridement Anesthesia Used: 5% Lidocaine Gel Depth: in the subcutaneous layer Percentage of wound debrided: 100 Instrument Used: 5mm curette Tissue Removed: Slough and fibrous tissue Severity: Fat Layer Exposed Amount of bleeding with debridement: Mild Bleeding Controlled with: Pressure Patient tolerated procedure well Assessment/Plan Active Problems HTN (hypertension) (Chronic) Chronic venous insufficiency (Chronic) Pressure ulcer of thigh, stage 2 (Acute) Fat layer exposed Immobility (Acute) Assessment: Wound is stable and improving Plan: The patient was seen and evaluated in the wound center today and updated on her plan of care. She does have a stage II pressure ulcer of the right posterior thigh. Subcutaneous excisional debridement was performed today. She would benefit from having a low air loss mattress or gel mattress at the nursing facility where she resides. Would also benefit from offloading with frequent repositioning changes at least hourly and every 2 hours at night. Baseline blood work reviewed and stable. Site will be dressed with hydrogel and optofoam daily. Discussed with patient the importance of adequate nutrition intake. She currently states that she does not eat a lot due [facility], pre-albumin was normal however. Wound cultures were collected previously and reviewed and showed positive for staph. She did complete a course of Bactrim DS. Patient was previously on Rocephin IV for chronic UTI, however has been off of this antibiotic for 2-1/2 weeks now. Did discuss with patient how her bowel incontinence can negatively impact wound healing. Discussed also the impact of skin shearing and that she may benefit from the use of incontinence chucks rather than the incontinence briefs that have been shearing her skin. She will follow-up in 1 week with the wound care center. This note was generated with [email or web address] dictation software. It may contain incorrect words, spelling, and punctuation that were not noted in checking the note before signing. Code Visit 111xxx-113xx: 97753 Jennifer subq tissue 20 sq cm/<
--- NOTE | 2017-11-02 15:21 | PN.PCM_ITS ---
(1) Pressure ulcer of thigh, stage 2 Status: Acute Current Visit: Yes Qualifiers: Laterality: right Code(s): L89.202 - Pressure ulcer of unspecified hip, stage 2 Comment: Fat layer exposed (2) Depression Status: Acute Current Visit: No Code(s): F32.9 - Major depressive disorder, single episode, unspecified (3) Immobility Status: Acute Current Visit: Yes Code(s): Z74.09 - Other reduced mobility (4) Spina bifida Status: Acute Current Visit: No Code(s): Q05.9 - Spina bifida, unspecified (5) Chronic venous insufficiency Status: Chronic Current Visit: Yes (6) HTN (hypertension) Status: Chronic Current Visit: Yes Code(s): I10 - Essential (primary) hypertension (7) Hypothyroidism Status: Chronic Current Visit: No Code(s): E03.9 - Hypothyroidism, unspecified (8) Obesity Status: Chronic Current Visit: No Code(s): E66.9 - Obesity, unspecified Type of Wound Date of Service: 11/01/17 Chief Complaint: Wound on back of right thigh History of Wound: This is a 42-year-old -Sammarinese female with a past medical history as described above presents to the wound care center with complaints of a wound on her back of her right thigh. The patient currently resides in a nursing facility due to her mobility issues. She states that she has had problems with this wound on and off for the past couple of years since 2013. Patient is a poor historian. SHe states that at the nursing facility, they have been using calmoseptine. She states that she attempts to be repositioned a couple times per night to keep pressure off of the site. She denies having a specialized low air loss mattress. She does have a chronic suprapubic catheter in place. She denies any drainage, pain, or foul smell from the wound. She denies any systemic signs of infection. She denies any other associated or aggravating symptoms. Progress of Wound: Stable, improving. Patient does state that there is no pain at the site. - Physical Exam Vital Signs Temp Pulse Resp BP 98 F 77 16 124/97 H 11/01/17 14:53 11/01/17 14:53 11/01/17 14:53 11/01/17 14:53 General: Alert, Oriented x3, Cooperative, No apparent distress HEENT: PERRLA, EOMI Cardiovascular: Regular rate Extremities: No cyanosis, No edema Skin: Ulcer/ Wound Wound Measurements and Assessment - Nurse 1 - General Ulcer Measurement Start: 11/01/17 14:52 Freq: Status: Active Protocol: Activity Type Activity Date Activity User E-Sign Co-Sign Detail Recorded Client Recorded Date Recorded By Document 11/01/17 14:53 DL [id number] 11/01/17 14:55 DL 11/01/17 14:53 Wound Center Nurse 1 [Ulcer Assessment Protocol: WC.WD.LOC] #5 RIGHT UPPER POST THIGH -Current Size (cm) - Length 3.2 -Current Size (cm) - Width 3.2 -Current Size (cm) - Depth 0.1 -Total Square Cm 10.24 -Photo Taken No -Exudate Amt Small (1-33%) -Exudate Type Serosanguineous -Wound Margin Flat & Intact -Granulation Amt Large (67-100%) -Granulation Quality [employer] -Necrosis Amt Small (1-33%) -Necrotic Tissue Type Adherent Slough -Structure Exposed N/A -Texture (Azul-wound Skin Appearance) Scarring -Moisture (Azul-wound Skin Appearance Dry/Scaly ) -Color (Azul-wound Skin Appearance) No Abnormality -Temperature (Azul-wound Skin No Abnormality Appearance) (Pt Warm) -Ulcer Cleansing Wound Cleanser -Foul Odor after Cleansing No -Anesthetic Used 4% Lidocaine Solution [facility] Nurse 2 - General Ulcer CM Notes Start: 11/01/17 14:52 Freq: Status: Active Protocol: Activity Type Activity Date Activity User E-Sign Co-Sign Detail Recorded Client Recorded Date Recorded By Document 11/01/17 15:30 DV [id number] 11/01/17 15:31 DV 11/01/17 15:30 Wound Center Nurse 2 [Procedure/Treatment] -Time 15:31 -Correct Patient Yes -Correct Side, Site, Position Yes -Correct Procedure Yes -Procedure Performed Yes -Type of Procedure Debridement -Clinical Debridement Subcutaneous -Post Debridement Size (cm) - Length 5.0 -Post Debridement Size (cm) - Width 1.5 -Post Debridement Size (cm) - Depth 0.1 -Total Square Cm 7.50 -Wound/Ulcer Outcome Not Healed -Ulcer Cleansing Rinsed/ Irrigated with Saline -Foul Odor after Cleansing No -Bioengineered Tissue No -Cetacaine [place] No -Bleeding Controlled with Pressure -Treatment Response Procedure Tolerated Well [See Physician Procedure note for Specifics] Pain Scale: 0-10 Numeric [Pain] -Is Patient Pain Free? Yes Psych/Mental Status: Alert and oriented to time, place, person, mood and affect - Stage II pressure ulcer right posterior thigh moderate amount of slough present, no drainage or exudate noted Debridement Note Post-Debridement Measurements/Treatment WC - Nurse 2 - General Ulcer CM Notes Start: 11/01/17 14:52 Freq: Status: Active Protocol: Activity Type Activity Date Activity User E-Sign Co-Sign Detail Recorded Client Recorded Date Recorded By Document 11/01/17 15:30 DV [id number] 11/01/17 15:31 DV 11/01/17 15:30 Wound Center Nurse 2 #5 RIGHT UPPER POST THIGH -Time 15:31 -Correct Patient Yes -Correct Side, Site, Position Yes -Correct Procedure Yes -Procedure Performed Yes -Type of Procedure Debridement -Clinical Debridement Subcutaneous -Post Debridement Size (cm) - Length 5.0 -Post Debridement Size (cm) - Width 1.5 -Post Debridement Size (cm) - Depth 0.1 -Total Square Cm 7.50 -Wound/Ulcer Outcome Not Healed -Ulcer Cleansing Rinsed/ Irrigated with Saline -Foul Odor after Cleansing No -Bioengineered Tissue No -Cetacaine [place] No -Bleeding Controlled with Pressure -Treatment Response Procedure Tolerated Well Pain Scale: 0-10 Numeric Is Patient Pain Free? Yes Wound debrided: Stage II pressure ulcer right posterior thigh Laterality: Right Wound Grade/Stage: Stage II Type of Debridement: Excisional debridement Anesthesia Used: 5% Lidocaine Gel Depth: in the subcutaneous layer Percentage of wound debrided: 100 Instrument Used: 5mm curette Tissue Removed: Slough and fibrous tissue Severity: Fat Layer Exposed Amount of bleeding with debridement: Mild Bleeding Controlled with: Pressure Patient tolerated procedure well Assessment/Plan Active Problems HTN (hypertension) (Chronic) Chronic venous insufficiency (Chronic) Pressure ulcer of thigh, stage 2 (Acute) Fat layer exposed Immobility (Acute) Assessment: Wound is stable and improving Plan: The patient was seen and evaluated in the wound center today and updated on her plan of care. She does have a stage II pressure ulcer of the right posterior thigh. Subcutaneous excisional debridement was performed today. She would benefit from having a low air loss mattress or gel mattress at the nursing facility where she resides. Would also benefit from offloading with frequent repositioning changes at least hourly and every 2 hours at night. Baseline blood work reviewed and stable. Site will be dressed with hydrogel and optofoam daily. Discussed with patient the importance of adequate nutrition intake. She currently states that she does not eat a lot due to not liking the food at the [facility], pre-albumin was normal however. Wound cultures were collected previously and reviewed and showed positive for staph. She did complete a course of Bactrim DS. Patient was previously on Rocephin IV for chronic UTI, however has been off of this antibiotic for 2-1/2 weeks now. Did discuss with patient how her bowel incontinence can negatively impact wound healing. Discussed also the impact of skin shearing and that she may benefit from the use of incontinence chucks rather than the incontinence briefs that have been shearing her skin. She will follow-up in 1 week with the wound care center. This note was generated with [employer] dictation software. It may contain incorrect words, spelling, and punctuation that were not noted in checking the note before signing. Code Visit 111xxx-113xx: [id number] Jennifer subq tissue 20 sq cm/<
[2017-11-08 14:14] VITALS: BP 115/73; PULSE 78; RESP 16; TEMP 37.3; BMI 44.2
--- NOTE | 2017-11-08 16:18 | PCM.WC.PN ---
(1) Pressure ulcer of thigh, stage 2 Status: Acute Qualifiers: Laterality: right Code(s): L89.202 - Pressure ulcer of unspecified hip, stage 2 Comment: Fat layer exposed (2) Depression Status: Acute Code(s): F32.9 - Major depressive disorder, single episode, unspecified (3) Immobility Status: Acute Code(s): Z74.09 - Other reduced mobility (4) Spina bifida Status: Acute Code(s): Q05.9 - Spina bifida, unspecified (5) Chronic venous insufficiency Status: Chronic (6) HTN (hypertension) Status: Chronic Code(s): I10 - Essential (primary) hypertension (7) Hypothyroidism Status: Chronic Code(s): E03.9 - Hypothyroidism, unspecified (8) Obesity Status: Chronic Code(s): E66.9 - Obesity, unspecified Type of Wound Date of Service: 11/08/17 Chief Complaint: Wound on back of right thigh History of Wound: This is a 42-year-old -Turkish female with a past medical history as described above presents to the wound care center with complaints of a wound on her back of her right thigh. The patient currently resides in a nursing facility due to her mobility issues. She states that she has had problems with this wound on and off for the past couple of years since 2013. Patient is a poor historian. SHe states that at the nursing facility, they have been using calmoseptine. She states that she attempts to be repositioned a couple times per night to keep pressure off of the site. She denies having a specialized low air loss mattress. She does have a chronic suprapubic catheter in place. She denies any drainage, pain, or foul smell from the wound. She denies any systemic signs of infection. She denies any other associated or aggravating symptoms. Progress of Wound: Stable, macerated at this time. Patient does state that there is no pain at the site. - Physical Exam Vital Signs Temp Pulse Resp BP 99.1 F 78 16 115/73 11/08/17 14:14 11/08/17 14:14 11/08/17 14:14 11/08/17 14:14 General: Alert, Oriented x3, Cooperative, No apparent distress HEENT: Atraumatic Cardiovascular: Regular rate Extremities: No edema Skin: Ulcer/ Wound - R posterior thigh stage 2 pressure cluster ulcer- macerated wound edges with slough present, no pain, exudate, or foul smell Psych/Mental Status: Normal Affect, Alert and oriented to time, place, person, mood and affect Debridement Note Post-Debridement Measurements/Treatment WC - Nurse 2 - General Ulcer CM Notes Start: 11/01/17 14:52 Freq: Status: Active Protocol: Activity Type Activity Date Activity User E-Sign Co-Sign Detail Recorded Client Recorded Date Recorded By Document 11/01/17 15:30 DV [id number] 11/01/17 15:31 DV Document 11/08/17 16:20 DV [id number] 11/08/17 16:24 DV 11/01/17 11/08/17 15:30 16:20 Wound Center Nurse 2 #5 RIGHT UPPER POST THIGH -Time 15:31 16:21 -Correct Patient Yes Yes -Correct Side, Site, Position Yes Yes -Correct Procedure Yes Yes -Procedure Performed Yes Yes -Type of Procedure Debridement Debridement -Clinical Debridement Subcutaneous Subcutaneous -Post Debridement Size (cm) - Length 5.0 9.0 -Post Debridement Size (cm) - Width 1.5 5.5 -Post Debridement Size (cm) - Depth 0.1 0.2 -Total Square Cm 7.50 49.50 -Wound/Ulcer Outcome Not Healed Not Healed -Ulcer Cleansing Rinsed/ Rinsed/ Irrigated with Irrigated with Saline Saline -Foul Odor after Cleansing No No -Bioengineered Tissue No No -Cetacaine [place] No -Bleeding Controlled with Pressure Pressure -Treatment Response Procedure Procedure Tolerated Well Tolerated Well Pain Scale: 0-10 Numeric Is Patient Pain Free? Yes Yes Wound debrided: R posterior thigh stage 2 cluster Laterality: Right Wound Grade/Stage: Stage 2 Type of Debridement: Selective debridement Anesthesia Used: 4% Lidocaine Solution Depth: in the subcutaneous layer Percentage of wound debrided: 50 Instrument Used: 5mm curette Tissue Removed: Slough and macerated tissue Severity: Fat Layer Exposed Amount of bleeding with debridement: Mild Bleeding Controlled with: Pressure Patient tolerated procedure well Assessment/Plan Assessment: R stage 2 posterior thigh pressure ulcer. Wound is stable and macerated at this time, will switch dressing change from hydrogel to aquacel with optofoam. Plan: The patient was seen and evaluated in the wound center today and updated on her plan of care. She does have a stage II pressure ulcer of the right posterior thigh. Subcutaneous excisional debridement was performed today. She would benefit from having a low air loss mattress or gel mattress at the nursing facility where she resides. Would also benefit from offloading with frequent repositioning changes at least hourly and every 2 hours at night. Baseline blood work reviewed and stable. Site will be dressed with aquacell and optofoam daily. Discussed with patient the importance of adequate nutrition intake. Wound cultures were collected previously and reviewed and showed positive for staph. She did complete a course of Bactrim DS. Patient was previously on Rocephin IV for chronic UTI as well. Did discuss with patient how her bowel incontinence can negatively impact wound healing. Discussed also the impact of skin shearing and that she may benefit from the use of incontinence chucks rather than the incontinence briefs that have been shearing her skin. She will follow-up in 1 week with the wound care center. This note was generated with [employer] dictation software. It may contain incorrect words, spelling, and punctuation that were not noted in checking the note before signing. Code Visit 111xxx-113xx: [id number] Jennifer subq tissue 20 sq cm/<
--- NOTE | 2017-11-13 10:27 | PN.PCM_ITS ---
(1) Pressure ulcer of thigh, stage 2 Status: Acute Qualifiers: Laterality: right Code(s): L89.202 - Pressure ulcer of unspecified hip, stage 2 Comment: Fat layer exposed (2) Depression Status: Acute Code(s): F32.9 - Major depressive disorder, single episode, unspecified (3) Immobility Status: Acute Code(s): Z74.09 - Other reduced mobility (4) Spina bifida Status: Acute Code(s): Q05.9 - Spina bifida, unspecified (5) Chronic venous insufficiency Status: Chronic (6) HTN (hypertension) Status: Chronic Code(s): I10 - Essential (primary) hypertension (7) Hypothyroidism Status: Chronic Code(s): E03.9 - Hypothyroidism, unspecified (8) Obesity Status: Chronic Code(s): E66.9 - Obesity, unspecified Type of Wound Date of Service: 11/08/17 Chief Complaint: Wound on back of right thigh History of Wound: This is a 42-year-old -Finnish female with a past medical history as described above presents to the wound care center with complaints of a wound on her back of her right thigh. The patient currently resides in a nursing facility due to her mobility issues. She states that she has had problems with this wound on and off for the past couple of years since 2013. Patient is a poor historian. SHe states that at the nursing facility, they have been using calmoseptine. She states that she attempts to be repositioned a couple times per night to keep pressure off of the site. She denies having a specialized low air loss mattress. She does have a chronic suprapubic catheter in place. She denies any drainage, pain, or foul smell from the wound. She denies any systemic signs of infection. She denies any other associated or aggravating symptoms. Progress of Wound: Stable, macerated at this time. Patient does state that there is no pain at the site. - Physical Exam Vital Signs Temp Pulse Resp BP 99.1 F 78 16 115/73 11/08/17 14:14 11/08/17 14:14 11/08/17 14:14 11/08/17 14:14 General: Alert, Oriented x3, Cooperative, No apparent distress HEENT: Atraumatic Cardiovascular: Regular rate Extremities: No edema Skin: Ulcer/ Wound - R posterior thigh stage 2 pressure cluster ulcer- macerated wound edges with slough present, no pain, exudate, or foul smell Psych/Mental Status: Normal Affect, Alert and oriented to time, place, person, mood and affect Debridement Note Post-Debridement Measurements/Treatment WC - Nurse 2 - General Ulcer CM Notes Start: 11/01/17 14:52 Freq: Status: Active Protocol: Activity Type Activity Date Activity User E-Sign Co-Sign Detail Recorded Client Recorded Date Recorded By Document 11/01/17 15:30 DV [id number] 11/01/17 15:31 DV Document 11/08/17 16:20 DV [id number] 11/08/17 16:24 DV 11/01/17 11/08/17 15:30 16:20 Wound Center Nurse 2 #5 RIGHT UPPER POST THIGH -Time 15:31 16:21 -Correct Patient Yes Yes -Correct Side, Site, Position Yes Yes -Correct Procedure Yes Yes -Procedure Performed Yes Yes -Type of Procedure Debridement Debridement -Clinical Debridement Subcutaneous Subcutaneous -Post Debridement Size (cm) - Length 5.0 9.0 -Post Debridement Size (cm) - Width 1.5 5.5 -Post Debridement Size (cm) - Depth 0.1 0.2 -Total Square Cm 7.50 49.50 -Wound/Ulcer Outcome Not Healed Not Healed -Ulcer Cleansing Rinsed/ Rinsed/ Irrigated with Irrigated with Saline Saline -Foul Odor after Cleansing No No -Bioengineered Tissue No No -Cetacaine [place] No -Bleeding Controlled with Pressure Pressure -Treatment Response Procedure Procedure Tolerated Well Tolerated Well Pain Scale: 0-10 Numeric Is Patient Pain Free? Yes Yes Wound debrided: R posterior thigh stage 2 cluster Laterality: Right Wound Grade/Stage: Stage 2 Type of Debridement: Selective debridement Anesthesia Used: 4% Lidocaine Solution Depth: in the subcutaneous layer Percentage of wound debrided: 50 Instrument Used: 5mm curette Tissue Removed: Slough and macerated tissue Severity: Fat Layer Exposed Amount of bleeding with debridement: Mild Bleeding Controlled with: Pressure Patient tolerated procedure well Assessment/Plan Assessment: R stage 2 posterior thigh pressure ulcer. Wound is stable and macerated at this time, will switch dressing change from hydrogel to aquacel with optofoam. Plan: The patient was seen and evaluated in the wound center today and updated on her plan of care. She does have a stage II pressure ulcer of the right posterior thigh. Subcutaneous excisional debridement was performed today. She would benefit from having a low air loss mattress or gel mattress at the nursing facility where she resides. Would also benefit from offloading with frequent repositioning changes at least hourly and every 2 hours at night. Baseline blood work reviewed and stable. Site will be dressed with aquacell and optofoam daily. Discussed with patient the importance of adequate nutrition intake. Wound cultures were collected previously and reviewed and showed positive for staph. She did complete a course of Bactrim DS. Patient was previously on Rocephin IV for chronic UTI as well. Did discuss with patient how her bowel incontinence can negatively impact wound healing. Discussed also the impact of skin shearing and that she may benefit from the use of incontinence chucks rather than the incontinence briefs that have been shearing her skin. She will follow-up in 1 week with the wound care center. This note was generated with [employer] dictation software. It may contain incorrect words, spelling, and punctuation that were not noted in checking the note before signing. Code Visit 111xxx-[id number]: [id number] Jennifer subq tissue 20 sq cm/<
[2017-11-15 15:43] VITALS: BMI 44.2
--- NOTE | 2017-11-15 19:33 | PCM.WC.PN ---
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 Comment: Right gluteal fold (2) Pressure ulcer of thigh, stage 2 Status: Acute Current Visit: Yes Qualifiers: Laterality: right Qualified Code(s): L89.212 - Pressure ulcer of right hip, stage 2 Code(s): L89.202 - Pressure ulcer of unspecified hip, stage 2 Comment: Fat layer exposed (3) Depression Status: Acute Current Visit: No Code(s): F32.9 - Major depressive disorder, single episode, unspecified (4) Immobility Status: Acute Current Visit: Yes Code(s): Z74.09 - Other reduced mobility (5) Spina bifida Status: Acute Current Visit: No Code(s): Q05.9 - Spina bifida, unspecified (6) Chronic venous insufficiency Status: Chronic Current Visit: Yes (7) HTN (hypertension) Status: Chronic Current Visit: No Code(s): I10 - Essential (primary) hypertension (8) Hypothyroidism Status: Chronic Current Visit: No Code(s): E03.9 - Hypothyroidism, unspecified (9) Obesity Status: Chronic Current Visit: No Code(s): E66.9 - Obesity, unspecified Type of Wound Date of Service: 11/16/17 Chief Complaint: Wound on back of right thigh, wound right gluteal fold History of Wound: This is a 42-year-old -Citizen Of [place] female with a past medical history as described above presents to the wound care center with complaints of a wound on her back of her right thigh. The patient currently resides in a nursing facility due to her mobility issues. She states that she has had problems with this wound on and off for the past couple of years since 2013. Patient is a poor historian. SHe states that at the nursing facility, they have been using calmoseptine. She states that she attempts to be repositioned a couple times per night to keep pressure off of the site. She denies having a specialized low air loss mattress. She does have a chronic suprapubic catheter in place. She denies any drainage, pain, or foul smell from the wound. She denies any systemic signs of infection. She denies any other associated or aggravating symptoms. Progress of Wound: Right thigh pressure ulcer healed and epithelialized. Patient does state that there is no pain at the site. New wound present right gluteal fold. Patient unsure of how or when this happened and due to her immobility status was unaware that this new wound even occurred, however, was not present at last weeks appt. denies any pain at this new wound site, or foul-smelling discharge. The patient otherwise denies any fever, chills, nausea, vomiting, shortness of breath, chest pain or pressure, palpitations, orthopnea, lower extremity edema, syncope or presyncopal episodes. - Physical Exam Vital Signs Temp Pulse Resp BP 99.1 F 78 16 115/73 11/08/17 14:14 11/08/17 14:14 11/08/17 14:14 11/08/17 14:14 General: Alert, Oriented x3, Cooperative, No apparent distress HEENT: Atraumatic Oral: Moist Mucosa Lungs: Clear to auscultation Cardiovascular: Regular rate Abdomen: Bowel Sounds Present Extremities: No clubbing, No cyanosis, No edema Skin: Ulcer/ Wound - Right gluteal fold ulcer present, clean moist wound bed, no exudate, macerated edges, appears consistent with shear injury Wound Measurements and Assessment WC - Nurse 1 - General Ulcer Measurement Start: 11/01/17 14:52 Freq: Status: Active Protocol: Activity Type Activity Date Activity User E-Sign Co-Sign Detail Recorded Client Recorded Date Recorded By Document 11/15/17 15:43 DL [id number] 11/15/17 15:45 DL 11/15/17 15:43 Wound Center Nurse 1 [Ulcer Assessment] #5 RIGHT UPPER POST THIGH -Combined with other wound No -Current Size (cm) - Length 0.1 -Current Size (cm) - Width 0.1 -Current Size (cm) - Depth 0.1 -Total Square Cm 0.01 -Photo Taken No -Epithelialization None Present -Tunneling No -Undermining/Tunneling No -Circular Undermining No -Classification - Thickness Full Thickness without Exposed Support Structure -Exudate Amt Small (1-33%) -Exudate Type Sanguineous -Wound Margin Distinct, Outline Attached -Granulation Amt None Present (0 %) -Slough/Fibrin Yes -Necrotic Tissue Type Adherent Slough -Structure Exposed None/Limited to Skin Breakdown -Texture (Azul-wound Skin Appearance) No Abnormality Assessed -Moisture (Azul-wound Skin Appearance No Abnormality ) Assessed -Color (Azul-wound Skin Appearance) No Abnormality Assessed -Temperature (Azul-wound Skin No Abnormality Appearance) (Pt Warm) -Tenderness on Palpation (Azul-wound No Skin Appearance) -Ulcer Cleansing Rinsed/ Irrigated with Saline [Edema Assessment] -Lower Limb Edema Present No WC - Nurse 2 - General Ulcer CM Notes Start: 11/01/17 14:52 Freq: Status: Active Protocol: Activity Type Activity Date Activity User E-Sign Co-Sign Detail Recorded Client Recorded Date Recorded By Document 11/15/17 16:26 MW [id number] 11/15/17 16:31 MW 11/15/17 16:26 Wound Center Nurse 2 [Procedure/Treatment] #6 Right gluteal fold -Time 16:28 -Correct Patient Yes -Correct Side, Site, Position Yes -Correct Procedure Yes -Procedure Performed Yes -Type of Procedure Debridement -Clinical Debridement Subcutaneous -Post Debridement Size (cm) - Length 2.2 -Post Debridement Size (cm) - Width 0.5 -Post Debridement Size (cm) - Depth 0.1 -Total Square Cm 1.10 -Wound/Ulcer Outcome Not Healed -Ulcer Cleansing Rinsed/ Irrigated with Saline -Foul Odor after Cleansing No -Bioengineered Tissue No -Bleeding Controlled with Pressure -Treatment Response Procedure Tolerated Well #5 RIGHT UPPER POST THIGH -Time 16:27 -Correct Patient Yes -Correct Side, Site, Position Yes -Correct Procedure Yes -Procedure Performed No -Post Debridement Size (cm) - Length 0 -Post Debridement Size (cm) - Width 0 -Post Debridement Size (cm) - Depth 0 -Total Square Cm 0 -Wound/Ulcer Outcome Healed- Epithelialized [See Physician Procedure note for Specifics] Pain Scale: 0-10 Numeric [Pain] -Is Patient Pain Free? Yes Musculoskeletal: Muscle Wasting Lymphatic: No Cervical, Supraclavicular, or Inguinal Adenopathy Neurological: - - nonambulatory, examined in wheelchair Psych/Mental Status: Normal Affect, Alert and oriented to time, place, person, mood and affect Comment: gonzalez cath in place Debridement Note Post-Debridement Measurements/Treatment WC - Nurse 2 - General Ulcer CM Notes Start: 11/01/17 14:52 Freq: Status: Active Protocol: Activity Type Activity Date Activity User E-Sign Co-Sign Detail Recorded Client Recorded Date Recorded By Document 11/01/17 15:30 DV [id number] 11/01/17 15:31 DV Document 11/08/17 16:20 DV [id number] 11/08/17 16:24 DV Document 11/15/17 16:26 MW [id number] 11/15/17 16:31 MW 11/01/17 11/08/17 11/15/17 15:30 16:20 16:26 Wound Center Nurse 2 #6 Right gluteal fold -Time 16:28 -Correct Patient Yes -Correct Side, Site, Position Yes -Correct Procedure Yes -Procedure Performed Yes -Type of Procedure Debridement -Clinical Debridement Subcutaneous -Post Debridement Size (cm) - Length 2.2 -Post Debridement Size (cm) - Width 0.5 -Post Debridement Size (cm) - Depth 0.1 -Total Square Cm 1.10 -Wound/Ulcer Outcome Not Healed -Ulcer Cleansing Rinsed/ Irrigated with Saline -Foul Odor after Cleansing No -Bioengineered Tissue No -Bleeding Controlled with Pressure -Treatment Response Procedure Tolerated Well #5 RIGHT UPPER POST THIGH -Time 15:31 16:21 16:27 -Correct Patient Yes Yes Yes -Correct Side, Site, Position Yes Yes Yes -Correct Procedure Yes Yes Yes -Procedure Performed Yes Yes No -Type of Procedure Debridement Debridement -Clinical Debridement Subcutaneous Subcutaneous -Post Debridement Size (cm) - Length 5.0 9.0 0 -Post Debridement Size (cm) - Width 1.5 5.5 0 -Post Debridement Size (cm) - Depth 0.1 0.2 0 -Total Square Cm 7.50 49.50 0 -Wound/Ulcer Outcome Not Healed Not Healed Healed- Epithelialized -Ulcer Cleansing Rinsed/ Rinsed/ Irrigated with Irrigated with Saline Saline -Foul Odor after Cleansing No No -Bioengineered Tissue No No -Cetacaine [place] No -Bleeding Controlled with Pressure Pressure -Treatment Response Procedure Procedure Tolerated Well Tolerated Well Pain Scale: 0-10 Numeric Is Patient Pain Free? Yes Yes Yes Wound debrided: Right gluteal fold ulcer Laterality: Right Type of Debridement: Excisional debridement Anesthesia Used: 5% Lidocaine Gel Depth: in the subcutaneous layer Percentage of wound debrided: 100 Instrument Used: 5mm curette Tissue Removed: slough and macerated wound edges Severity: Fat Layer Exposed Amount of bleeding with debridement: None Bleeding Controlled with: Pressure Patient tolerated procedure well Assessment/Plan Active Problems Non-healing ulcer of buttock with fat layer exposed (Acute) Right gluteal fold Pressure ulcer of thigh, stage 2 (Acute) Fat layer exposed Chronic venous insufficiency (Chronic) Immobility (Acute) Assessment: R stage 2 posterior thigh pressure ulcer epithelialized and healed. New wound present right gluteal fold ulcer. Plan: The patient was seen and evaluated in the wound center today and updated on her plan of care. She does have a stage II pressure ulcer of the right posterior thigh which has now healed. However, patient did develop a new ulcer of the right gluteal fold which appears to be related to a shear injury. Subcutaneous excisional debridement was performed today. She would benefit from having a low air loss mattress or gel mattress at the nursing facility where she resides. Would also benefit from offloading with frequent repositioning changes at least hourly and every 2 hours at night. Baseline blood work reviewed and stable. Right gluteal fold ulcer will be dressed with aquacell and optofoam daily. Discussed with patient the importance of adequate nutrition intake. Wound cultures were collected previously and reviewed and showed positive for staph. She did complete a course of Bactrim DS. Patient was previously on Rocephin IV for chronic UTI as well. Did discuss with patient how her bowel incontinence can negatively impact wound healing. Discussed also the impact of skin shearing and that she may benefit from the use of incontinence chucks rather than the incontinence briefs that have been shearing her skin. She will follow-up in 1 week with the wound care center. This note was generated with [email or web address] dictation software. It may contain incorrect words, spelling, and punctuation that were not noted in checking the note before signing. Code Visit Office Visits / Consults: [id number] OV L3 Est 111xxx-113xx: [id number] Jennifer subq tissue 20 sq cm/<
--- NOTE | 2017-11-16 10:45 | PN.PCM_ITS ---
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 Comment: Right gluteal fold (2) Pressure ulcer of thigh, stage 2 Status: Acute Current Visit: Yes Qualifiers: Laterality: right Qualified Code(s): L89.212 - Pressure ulcer of right hip , stage 2 Code(s): L89.202 - Pressure ulcer of unspecified hip, stage 2 Comment: Fat layer exposed (3) Depression Status: Acute Current Visit: No Code(s): F32.9 - Major depressive disorder, single episode, unspecified (4) Immobility Status: Acute Current Visit: Yes Code(s): Z74.09 - Other reduced mobility (5) Spina bifida Status: Acute Current Visit: No Code(s): Q05.9 - Spina bifida, unspecified (6) Chronic venous insufficiency Status: Chronic Current Visit: Yes (7) HTN (hypertension) Status: Chronic Current Visit: No Code(s): I10 - Essential (primary) hypertension (8) Hypothyroidism Status: Chronic Current Visit: No Code(s): E03.9 - Hypothyroidism, unspecified (9) Obesity Status: Chronic Current Visit: No Code(s): E66.9 - Obesity, unspecified Type of Wound Date of Service: 11/16/17 Chief Complaint: Wound on back of right thigh, wound right gluteal fold History of Wound: This is a 42-year-old -[place] female with a past medical history as described above presents to the wound care center with complaints of a wound on her back of her right thigh. The patient currently resides in a nursing facility due to her mobility issues. She states that she has had problems with this wound on and off for the past couple of years since 2013. Patient is a poor historian. SHe states that at the nursing facility, they have been using calmoseptine. She states that she attempts to be repositioned a couple times per night to keep pressure off of the site. She denies having a specialized low air loss mattress. She does have a chronic suprapubic catheter in place. She denies any drainage, pain, or foul smell from the wound. She denies any systemic signs of infection. She denies any other associated or aggravating symptoms. Progress of Wound: Right thigh pressure ulcer healed and epithelialized. Patient does state that there is no pain at the site. New wound present right gluteal fold. Patient unsure of how or when this happened and due to her immobility status was unaware that this new wound even occurred, however, was not present at last weeks appt. denies any pain at this new wound site, or foul- smelling discharge. The patient otherwise denies any fever, chills, nausea, vomiting, shortness of breath, chest pain or pressure, palpitations, orthopnea, lower extremity edema, syncope or presyncopal episodes. - Physical Exam Vital Signs Temp Pulse Resp BP 99.1 F 78 16 115/73 11/08/17 14:14 11/08/17 14:14 11/08/17 14:14 11/08/17 14:14 General: Alert, Oriented x3, Cooperative, No apparent distress HEENT: Atraumatic Oral: Moist Mucosa Lungs: Clear to auscultation Cardiovascular: Regular rate Abdomen: Bowel Sounds Present Extremities: No clubbing, No cyanosis, No edema Skin: Ulcer/ Wound - Right gluteal fold ulcer present, clean moist wound bed, no exudate, macerated edges, appears consistent with shear injury Wound Measurements and Assessment WC - Nurse 1 - General Ulcer Measurement Start: 11/01/17 14:52 Freq: Status: Active Protocol: Activity Type Activity Date Activity User E-Sign Co-Sign Detail Recorded Client Recorded Date Recorded By Document 11/15/17 15:43 DL [id number] 11/15/17 15:45 DL 11/15/17 15:43 Wound Center Nurse 1 [Ulcer Assessment] #5 RIGHT UPPER POST THIGH -Combined with other wound No -Current Size (cm) - Length 0.1 -Current Size (cm) - Width 0.1 -Current Size (cm) - Depth 0.1 -Total Square Cm 0.01 -Photo Taken No -Epithelialization None Present -Tunneling No -Undermining/Tunneling No -Circular Undermining No -Classification - Thickness Full Thickness without Exposed Support Structure -Exudate Amt Small (1-33%) -Exudate Type Sanguineous -Wound Margin Distinct, Outline Attached -Granulation Amt None Present (0 %) -Slough/Fibrin Yes -Necrotic Tissue Type Adherent Slough -Structure Exposed None/Limited to Skin Breakdown -Texture (Azul-wound Skin Appearance) No Abnormality Assessed -Moisture (Azul-wound Skin Appearance No Abnormality ) Assessed -Color (Azul-wound Skin Appearance) No Abnormality Assessed -Temperature (Azul-wound Skin No Abnormality Appearance) (Pt Warm) -Tenderness on Palpation (Azul-wound No Skin Appearance) -Ulcer Cleansing Rinsed/ Irrigated with Saline [Edema Assessment] -Lower Limb Edema Present No WC - Nurse 2 - General Ulcer CM Notes Start: 11/01/17 14:52 Freq: Status: Active Protocol: Activity Type Activity Date Activity User E-Sign Co-Sign Detail Recorded Client Recorded Date Recorded By Document 11/15/17 16:26 MW [id number] 11/15/17 16:31 MW 11/15/17 16:26 Wound Center Nurse 2 [Procedure/Treatment] #6 Right gluteal fold -Time 16:28 -Correct Patient Yes -Correct Side, Site, Position Yes -Correct Procedure Yes -Procedure Performed Yes -Type of Procedure Debridement -Clinical Debridement Subcutaneous -Post Debridement Size (cm) - Length 2.2 -Post Debridement Size (cm) - Width 0.5 -Post Debridement Size (cm) - Depth 0.1 -Total Square Cm 1.10 -Wound/Ulcer Outcome Not Healed -Ulcer Cleansing Rinsed/ Irrigated with Saline -Foul Odor after Cleansing No -Bioengineered Tissue No -Bleeding Controlled with Pressure -Treatment Response Procedure Tolerated Well #5 RIGHT UPPER POST THIGH -Time 16:27 -Correct Patient Yes -Correct Side, Site, Position Yes -Correct Procedure Yes -Procedure Performed No -Post Debridement Size (cm) - Length 0 -Post Debridement Size (cm) - Width 0 -Post Debridement Size (cm) - Depth 0 -Total Square Cm 0 -Wound/Ulcer Outcome Healed- Epithelialized [See Physician Procedure note for Specifics] Pain Scale: 0-10 Numeric [Pain] -Is Patient Pain Free? Yes Musculoskeletal: Muscle Wasting Lymphatic: No Cervical, Supraclavicular, or Inguinal Adenopathy Neurological: - - nonambulatory, examined in wheelchair Psych/Mental Status: Normal Affect, Alert and oriented to time, place, person, mood and affect Comment: gonzalez cath in place Debridement Note Post-Debridement Measurements/Treatment WC - Nurse 2 - General Ulcer CM Notes Start: 11/01/17 14:52 Freq: Status: Active Protocol: Activity Type Activity Date Activity User E-Sign Co-Sign Detail Recorded Client Recorded Date Recorded By Document 11/01/17 15:30 DV [id number] 11/01/17 15:31 DV Document 11/08/17 16:20 DV [id number] 11/08/17 16:24 DV Document 11/15/17 16:26 MW [id number] 11/15/17 16:31 MW 11/01/17 11/08/17 11/15/17 15:30 16:20 16:26 Wound Center Nurse 2 #6 Right gluteal fold -Time 16:28 -Correct Patient Yes -Correct Side, Site, Position Yes -Correct Procedure Yes -Procedure Performed Yes -Type of Procedure Debridement -Clinical Debridement Subcutaneous -Post Debridement Size (cm) - Length 2.2 -Post Debridement Size (cm) - Width 0.5 -Post Debridement Size (cm) - Depth 0.1 -Total Square Cm 1.10 -Wound/Ulcer Outcome Not Healed -Ulcer Cleansing Rinsed/ Irrigated with Saline -Foul Odor after Cleansing No -Bioengineered Tissue No -Bleeding Controlled with Pressure -Treatment Response Procedure Tolerated Well #5 RIGHT UPPER POST THIGH -Time 15:31 16:21 16:27 -Correct Patient Yes Yes Yes -Correct Side, Site, Position Yes Yes Yes -Correct Procedure Yes Yes Yes -Procedure Performed Yes Yes No -Type of Procedure Debridement Debridement -Clinical Debridement Subcutaneous Subcutaneous -Post Debridement Size (cm) - Length 5.0 9.0 0 -Post Debridement Size (cm) - Width 1.5 5.5 0 -Post Debridement Size (cm) - Depth 0.1 0.2 0 -Total Square Cm 7.50 49.50 0 -Wound/Ulcer Outcome Not Healed Not Healed Healed- Epithelialized -Ulcer Cleansing Rinsed/ Rinsed/ Irrigated with Irrigated with Saline Saline -Foul Odor after Cleansing No No -Bioengineered Tissue No No -Cetacaine [place] No -Bleeding Controlled with Pressure Pressure -Treatment Response Procedure Procedure Tolerated Well Tolerated Well Pain Scale: 0-10 Numeric Is Patient Pain Free? Yes Yes Yes Wound debrided: Right gluteal fold ulcer Laterality: Right Type of Debridement: Excisional debridement Anesthesia Used: 5% Lidocaine Gel Depth: in the subcutaneous layer Percentage of wound debrided: 100 Instrument Used: 5mm curette Tissue Removed: slough and macerated wound edges Severity: Fat Layer Exposed Amount of bleeding with debridement: None Bleeding Controlled with: Pressure Patient tolerated procedure well Assessment/Plan Active Problems Non-healing ulcer of buttock with fat layer exposed (Acute) Right gluteal fold Pressure ulcer of thigh, stage 2 (Acute) Fat layer exposed Chronic venous insufficiency (Chronic) Immobility (Acute) Assessment: R stage 2 posterior thigh pressure ulcer epithelialized and healed. New wound present right gluteal fold ulcer. Plan: The patient was seen and evaluated in the wound center today and updated on her plan of care. She does have a stage II pressure ulcer of the right posterior thigh which has now healed. However, patient did develop a new ulcer of the right gluteal fold which appears to be related to a shear injury. Subcutaneous excisional debridement was performed today. She would benefit from having a low air loss mattress or gel mattress at the nursing facility where she resides. Would also benefit from offloading with frequent repositioning changes at least hourly and every 2 hours at night. Baseline blood work reviewed and stable. Right gluteal fold ulcer will be dressed with aquacell and optofoam daily. Discussed with patient the importance of adequate nutrition intake. Wound cultures were collected previously and reviewed and showed positive for staph. She did complete a course of Bactrim DS. Patient was previously on Rocephin IV for chronic UTI as well. Did discuss with patient how her bowel incontinence can negatively impact wound healing. Discussed also the impact of skin shearing and that she may benefit from the use of incontinence chucks rather than the incontinence briefs that have been shearing her skin. She will follow-up in 1 week with the wound care center. This note was generated with [employer] dictation software. It may contain incorrect words, spelling, and punctuation that were not noted in checking the note before signing. Code Visit Office Visits / Consults: [id number] OV L3 Est 111xxx-113xx: [id number] Jennifer subq tissue 20 sq cm/<
== END 2017-11-28 23:59 ==
LOC: WC 14:30
PROVIDERS: Family Provider Family Medicine; PCP Family Medicine; Visit Provider Nurse Practitioner Family
DX: L89.202 Pressure ulcer of unspecified hip, stage 2 (principal); Q05.9 Spina bifida, unspecified; F32.9 Major depressive disorder, single episode, unspecified; Z74.09 Other reduced mobility; I10 Essential (primary) hypertension; E03.9 Hypothyroidism, unspecified; I87.2 Venous insufficiency (chronic) (peripheral); E66.9 Obesity, unspecified; Z68.41 Body mass index [BMI] 40.0-44.9, adult; Z71.3 Dietary counseling and surveillance
CPT/HCPCS: 11042; 11045

== ENCOUNTER 2017-12-20 13:00 | Outpatient (RCR) | payer MEDICAID, SELFPAY ==
[2017-11-29 00:51] VITALS: BP 115/73; PULSE 78; RESP 16; TEMP 37.3; BMI 44.2
[2017-11-29 14:29] VITALS: BP 132/81; PULSE 75; RESP 16; TEMP 35.5; BMI 44.2
--- NOTE | 2017-11-29 16:32 | PCM.WC.PN ---
(1) Non-healing ulcer of buttock with fat layer exposed Status: Acute Current Visit: No Code(s): L98.412 - Non-pressure chronic ulcer of buttock with fat layer exposed Comment: Right gluteal fold (2) Immobility Status: Acute Current Visit: Yes Code(s): Z74.09 - Other reduced mobility (3) Chronic venous insufficiency Status: Chronic Current Visit: Yes (4) HTN (hypertension) Status: Chronic Current Visit: No Code(s): I10 - Essential (primary) hypertension (5) Obesity Status: Chronic Current Visit: Yes Code(s): E66.9 - Obesity, unspecified Type of Wound Date of Service: 11/29/17 Chief Complaint: Wound on back of right thigh, wound right gluteal fold History of Wound: This is a 42-year-old -[place] female with a past medical history as described above presents to the wound care center with complaints of a wound on her back of her right thigh. The patient currently resides in a nursing facility due to her mobility issues. She states that she has had problems with this wound on and off for the past couple of years since 2013. Patient is a poor historian. SHe states that at the nursing facility, they have been using calmoseptine. She states that she attempts to be repositioned a couple times per night to keep pressure off of the site. She denies having a specialized low air loss mattress. She does have a chronic suprapubic catheter in place. She denies any drainage, pain, or foul smell from the wound. She denies any systemic signs of infection. She denies any other associated or aggravating symptoms. Progress of Wound: Nonhealing ulcer present right gluteal fold. Stable and improving. denies any pain at this new wound site, or foul-smelling discharge. - Physical Exam Vital Signs Temp Pulse Resp BP 96 F L 75 16 132/81 H 11/29/17 14:29 11/29/17 14:29 11/29/17 14:29 11/29/17 14:29 General: Alert, Oriented x3, Cooperative, No apparent distress HEENT: PERRLA, EOMI Oral: Moist Mucosa Cardiovascular: Regular rate Extremities: No clubbing, No cyanosis Skin: Ulcer/ Wound - Right gluteal fold ulcer present with moderate amount of slough and slightly macerated edges, no discharge or foul smell Wound Measurements and Assessment - Nurse 1 - General Ulcer Measurement Start: 11/29/17 14:29 Freq: Status: Active Protocol: Activity Type Activity Date Activity User E-Sign Co-Sign Detail Recorded Client Recorded Date Recorded By Document 11/29/17 14:29 DL [id number] 11/29/17 14:40 DL 11/29/17 14:29 Wound Center Nurse 1 [Ulcer Assessment] #6 Right gluteal fold -Current Size (cm) - Length 1.4 -Current Size (cm) - Width 0.6 -Current Size (cm) - Depth 0.1 -Total Square Cm 0.84 -Photo Taken Yes -Exudate Amt Small (1-33%) -Exudate Type Serosanguineous -Wound Margin Distinct, Outline Attached -Granulation Amt Large (67-100%) -Granulation Quality Pale -Necrosis Amt Small (1-33%) -Necrotic Tissue Type Adherent Slough -Structure Exposed N/A -Texture (Azul-wound Skin Appearance) Scarring -Moisture (Azul-wound Skin Appearance No Abnormality ) -Color (Azul-wound Skin Appearance) No Abnormality -Temperature (Azul-wound Skin No Abnormality Appearance) (Pt Warm) -Ulcer Cleansing Wound Cleanser -Foul Odor after Cleansing No -Anesthetic Used 4% Lidocaine Solution - Nurse 2 - General Ulcer CM Notes Start: 11/29/17 14:29 Freq: Status: Active Protocol: Activity Type Activity Date Activity User E-Sign Co-Sign Detail Recorded Client Recorded Date Recorded By Document 11/29/17 15:37 DV [id number] 11/29/17 15:40 DV 11/29/17 15:37 Wound Center Nurse 2 [Procedure/Treatment] -Time 15:37 -Correct Patient Yes -Correct Side, Site, Position Yes -Correct Procedure Yes -Procedure Performed Yes -Type of Procedure Debridement -Clinical Debridement Subcutaneous -Post Debridement Size (cm) - Length 0.5 -Post Debridement Size (cm) - Width 3.5 -Post Debridement Size (cm) - Depth 0.1 -Total Square Cm 1.75 -Wound/Ulcer Outcome Not Healed -Ulcer Cleansing Rinsed/ Irrigated with Saline -Foul Odor after Cleansing No -Bioengineered Tissue No -Bleeding Controlled with Pressure -Treatment Response Procedure Tolerated Well [See Physician Procedure note for Specifics] Pain Scale: 0-10 Numeric [Pain] -Is Patient Pain Free? Yes Psych/Mental Status: Normal Affect, Alert and oriented to time, place, person, mood and affect Debridement Note Post-Debridement Measurements/Treatment WC - Nurse 2 - General Ulcer CM Notes Start: 11/29/17 14:29 Freq: Status: Active Protocol: Activity Type Activity Date Activity User E-Sign Co-Sign Detail Recorded Client Recorded Date Recorded By Document 11/29/17 15:37 DV [id number] 11/29/17 15:40 DV 11/29/17 15:37 Wound Center Nurse 2 #6 Right gluteal fold -Time 15:37 -Correct Patient Yes -Correct Side, Site, Position Yes -Correct Procedure Yes -Procedure Performed Yes -Type of Procedure Debridement -Clinical Debridement Subcutaneous -Post Debridement Size (cm) - Length 0.5 -Post Debridement Size (cm) - Width 3.5 -Post Debridement Size (cm) - Depth 0.1 -Total Square Cm 1.75 -Wound/Ulcer Outcome Not Healed -Ulcer Cleansing Rinsed/ Irrigated with Saline -Foul Odor after Cleansing No -Bioengineered Tissue No -Bleeding Controlled with Pressure -Treatment Response Procedure Tolerated Well Pain Scale: 0-10 Numeric Is Patient Pain Free? Yes Wound debrided: Ulcer right gluteal fold Laterality: Right Type of Debridement: Excisional debridement Anesthesia Used: 5% Lidocaine Gel Depth: Down to and including healthy tissue, in the subcutaneous layer Percentage of wound debrided: 100 Instrument Used: 5mm curette Tissue Removed: Slough and fibrous tissue Severity: Fat Layer Exposed Amount of bleeding with debridement: Mild Bleeding Controlled with: Pressure Patient tolerated procedure well Assessment/Plan Active Problems Chronic venous insufficiency (Chronic) Obesity (Chronic) Immobility (Acute) Assessment: right gluteal fold ulcer improving. Plan: The patient was seen and evaluated in the wound center today and updated on her plan of care. She does have a ulcer of the right gluteal fold which appears to be related to a shear injury. Subcutaneous excisional debridement was performed today. She would benefit from having a low air loss mattress or gel mattress at the nursing facility where she resides. Would also benefit from offloading with frequent repositioning changes at least hourly and every 2 hours at night. Baseline blood work reviewed and stable. Right gluteal fold ulcer will be dressed with promogran and optofoam daily. Discussed with patient the importance of adequate nutrition intake. Wound cultures were collected previously and reviewed and showed positive for staph. She did complete a course of Bactrim DS. Patient was previously on Rocephin IV for chronic UTI as well. Did discuss with patient how her bowel incontinence can negatively impact wound healing. Discussed also the impact of skin shearing and that she may benefit from the use of incontinence chucks rather than the incontinence briefs that have been shearing her skin. She will follow-up in 1 week with the wound care center. This note was generated with [employer] dictation software. It may contain incorrect words, spelling, and punctuation that were not noted in checking the note before signing. Code Visit 111xxx-113xx: [id number] Jennifer subq tissue 20 sq cm/<
--- NOTE | 2017-11-29 16:42 | PN.PCM_ITS ---
(1) Non-healing ulcer of buttock with fat layer exposed Status: Acute Current Visit: No Code(s): L98.412 - Non-pressure chronic ulcer of buttock with fat layer exposed Comment: Right gluteal fold (2) Immobility Status: Acute Current Visit: Yes Code(s): Z74.09 - Other reduced mobility (3) Chronic venous insufficiency Status: Chronic Current Visit: Yes (4) HTN (hypertension) Status: Chronic Current Visit: No Code(s): I10 - Essential (primary) hypertension (5) Obesity Status: Chronic Current Visit: Yes Code(s): E66.9 - Obesity, unspecified Type of Wound Date of Service: 11/29/17 Chief Complaint: Wound on back of right thigh, wound right gluteal fold History of Wound: This is a 42-year-old -[place]est[place] female with a past medical history as described above presents to the wound care center with complaints of a wound on her back of her right thigh. The patient currently resides in a nursing facility due to her mobility issues. She states that she has had problems with this wound on and off for the past couple of years since 2013. Patient is a poor historian. SHe states that at the nursing facility, they have been using calmoseptine. She states that she attempts to be repositioned a couple times per night to keep pressure off of the site. She denies having a specialized low air loss mattress. She does have a chronic suprapubic catheter in place. She denies any drainage, pain, or foul smell from the wound. She denies any systemic signs of infection. She denies any other associated or aggravating symptoms. Progress of Wound: Nonhealing ulcer present right gluteal fold. Stable and improving. denies any pain at this new wound site, or foul-smelling discharge. - Physical Exam Vital Signs Temp Pulse Resp BP 96 F L 75 16 132/81 H 11/29/17 14:29 11/29/17 14:29 11/29/17 14:29 11/29/17 14:29 General: Alert, Oriented x3, Cooperative, No apparent distress HEENT: PERRLA, EOMI Oral: Moist Mucosa Cardiovascular: Regular rate Extremities: No clubbing, No cyanosis Skin: Ulcer/ Wound - Right gluteal fold ulcer present with moderate amount of slough and slightly macerated edges, no discharge or foul smell Wound Measurements and Assessment - Nurse 1 - General Ulcer Measurement Start: 11/29/17 14:29 Freq: Status: Active Protocol: Activity Type Activity Date Activity User E-Sign Co-Sign Detail Recorded Client Recorded Date Recorded By Document 11/29/17 14:29 DL [id number] 11/29/17 14:40 DL 11/29/17 14:29 Wound Center Nurse 1 [Ulcer Assessment] #6 Right gluteal fold -Current Size (cm) - Length 1.4 -Current Size (cm) - Width 0.6 -Current Size (cm) - Depth 0.1 -Total Square Cm 0.84 -Photo Taken Yes -Exudate Amt Small (1-33%) -Exudate Type Serosanguineous -Wound Margin Distinct, Outline Attached -Granulation Amt Large (67-100%) -Granulation Quality Pale -Necrosis Amt Small (1-33%) -Necrotic Tissue Type Adherent Slough -Structure Exposed N/A -Texture (Azul-wound Skin Appearance) Scarring -Moisture (Azul-wound Skin Appearance No Abnormality ) -Color (Azul-wound Skin Appearance) No Abnormality -Temperature (Azul-wound Skin No Abnormality Appearance) (Pt Warm) -Ulcer Cleansing Wound Cleanser -Foul Odor after Cleansing No -Anesthetic Used 4% Lidocaine Solution - Nurse 2 - General Ulcer CM Notes Start: 11/29/17 14:29 Freq: Status: Active Protocol: Activity Type Activity Date Activity User E-Sign Co-Sign Detail Recorded Client Recorded Date Recorded By Document 11/29/17 15:37 DV [id number] 11/29/17 15:40 DV 11/29/17 15:37 Wound Center Nurse 2 [Procedure/Treatment] -Time 15:37 -Correct Patient Yes -Correct Side, Site, Position Yes -Correct Procedure Yes -Procedure Performed Yes -Type of Procedure Debridement -Clinical Debridement Subcutaneous -Post Debridement Size (cm) - Length 0.5 -Post Debridement Size (cm) - Width 3.5 -Post Debridement Size (cm) - Depth 0.1 -Total Square Cm 1.75 -Wound/Ulcer Outcome Not Healed -Ulcer Cleansing Rinsed/ Irrigated with Saline -Foul Odor after Cleansing No -Bioengineered Tissue No -Bleeding Controlled with Pressure -Treatment Response Procedure Tolerated Well [See Physician Procedure note for Specifics] Pain Scale: 0-10 Numeric [Pain] -Is Patient Pain Free? Yes Psych/Mental Status: Normal Affect, Alert and oriented to time, place, person, mood and affect Debridement Note Post-Debridement Measurements/Treatment WC - Nurse 2 - General Ulcer CM Notes Start: 11/29/17 14:29 Freq: Status: Active Protocol: Activity Type Activity Date Activity User E-Sign Co-Sign Detail Recorded Client Recorded Date Recorded By Document 11/29/17 15:37 DV [id number] 11/29/17 15:40 DV 11/29/17 15:37 Wound Center Nurse 2 #6 Right gluteal fold -Time 15:37 -Correct Patient Yes -Correct Side, Site, Position Yes -Correct Procedure Yes -Procedure Performed Yes -Type of Procedure Debridement -Clinical Debridement Subcutaneous -Post Debridement Size (cm) - Length 0.5 -Post Debridement Size (cm) - Width 3.5 -Post Debridement Size (cm) - Depth 0.1 -Total Square Cm 1.75 -Wound/Ulcer Outcome Not Healed -Ulcer Cleansing Rinsed/ Irrigated with Saline -Foul Odor after Cleansing No -Bioengineered Tissue No -Bleeding Controlled with Pressure -Treatment Response Procedure Tolerated Well Pain Scale: 0-10 Numeric Is Patient Pain Free? Yes Wound debrided: Ulcer right gluteal fold Laterality: Right Type of Debridement: Excisional debridement Anesthesia Used: 5% Lidocaine Gel Depth: Down to and including healthy tissue, in the subcutaneous layer Percentage of wound debrided: 100 Instrument Used: 5mm curette Tissue Removed: Slough and fibrous tissue Severity: Fat Layer Exposed Amount of bleeding with debridement: Mild Bleeding Controlled with: Pressure Patient tolerated procedure well Assessment/Plan Active Problems Chronic venous insufficiency (Chronic) Obesity (Chronic) Immobility (Acute) Assessment: right gluteal fold ulcer improving. Plan: The patient was seen and evaluated in the wound center today and updated on her plan of care. She does have a ulcer of the right gluteal fold which appears to be related to a shear injury. Subcutaneous excisional debridement was performed today. She would benefit from having a low air loss mattress or gel mattress at the nursing facility where she resides. Would also benefit from offloading with frequent repositioning changes at least hourly and every 2 hours at night. Baseline blood work reviewed and stable. Right gluteal fold ulcer will be dressed with promogran and optofoam daily. Discussed with patient the importance of adequate nutrition intake. Wound cultures were collected previously and reviewed and showed positive for staph. She did complete a course of Bactrim DS. Patient was previously on Rocephin IV for chronic UTI as well. Did discuss with patient how her bowel incontinence can negatively impact wound healing. Discussed also the impact of skin shearing and that she may benefit from the use of incontinence chucks rather than the incontinence briefs that have been shearing her skin. She will follow-up in 1 week with the wound care center. This note was generated with [employer] dictation software. It may contain incorrect words, spelling, and punctuation that were not noted in checking the note before signing. Code Visit 111xxx-113xx: 00556 Jennifer subq tissue 20 sq cm/<
[2017-12-06 14:09] VITALS: BP 133/94; PULSE 86; RESP 16; TEMP 36.4; BMI 44.2
--- NOTE | 2017-12-06 16:54 | PCM.WC.PN ---
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 Comment: Right gluteal fold (2) Immobility Status: Acute Current Visit: Yes Code(s): Z74.09 - Other reduced mobility (3) Chronic venous insufficiency Status: Chronic Current Visit: Yes (4) HTN (hypertension) Status: Chronic Current Visit: No Code(s): I10 - Essential (primary) hypertension (5) Obesity Status: Chronic Current Visit: Yes Code(s): E66.9 - Obesity, unspecified Type of Wound Date of Service: 12/07/17 Chief Complaint: Wound on back of right thigh, wound right gluteal fold History of Wound: This is a 42-year-old -Colombian female with a past medical history as described above presents to the wound care center with complaints of a wound on her back of her right thigh. The patient currently resides in a nursing facility due to her mobility issues. She states that she has had problems with this wound on and off for the past couple of years since 2013. Patient is a poor historian. SHe states that at the nursing facility, they have been using calmoseptine. She states that she attempts to be repositioned a couple times per night to keep pressure off of the site. She denies having a specialized low air loss mattress. She does have a chronic gonzalez catheter in place. She denies any drainage, pain, or foul smell from the wound. She denies any systemic signs of infection. She denies any other associated or aggravating symptoms. Progress of Wound: Nonhealing ulcer present right gluteal fold. Deteriorated, patient states that he has been more as excoriated lately due to her Gonzalez catheter being improperly placed and constantly leaking. denies any pain or foul-smelling discharge. - Physical Exam Vital Signs Temp Pulse Resp BP 97.6 F L 86 16 133/94 H 12/06/17 14:09 12/06/17 14:09 12/06/17 14:09 12/06/17 14:09 General: Alert, Oriented x3 HEENT: Atraumatic Cardiovascular: Regular rate Extremities: No clubbing, No cyanosis, No edema Skin: Ulcer/ Wound - Right gluteal fold, deteriorated due to urine excoriation, site is very superficial with small amount of slough and macerated tissue edges present. No signs of inflammation or discharge or foul smell at this time. Wound Measurements and Assessment WC - Nurse 1 - General Ulcer Measurement Start: 11/29/17 14:29 Freq: Status: Active Protocol: Activity Type Activity Date Activity User E-Sign Co-Sign Detail Recorded Client Recorded Date Recorded By Document 12/06/17 14:09 TINY [id number] 12/06/17 14:40 TINY 12/06/17 14:09 Wound Center Nurse 1 [Ulcer Assessment] #6 Right gluteal fold -Combined with other wound No -Current Size (cm) - Length 2.0 -Current Size (cm) - Width 5.8 -Current Size (cm) - Depth 0.1 -Total Square Cm 11.60 -Date of Last Picture (Recall this 12/06/17 field) -Photo Taken Yes -Epithelialization Small 1-33% -Tunneling No -Undermining/Tunneling No -Circular Undermining No -Classification - Thickness Full Thickness without Exposed Support Structure -Classification - Pressure Ulcer Stage 1 -Exudate Amt Small (1-33%) -Exudate Type Serosanguineous -Wound Margin Distinct, Outline Attached -Granulation Amt None Present (0 %) -Slough/Fibrin Yes -Necrosis Amt None Present (0 %) -Necrotic Tissue Type Adherent Slough -Structure Exposed N/A -Texture (Azul-wound Skin Appearance) No Abnormality -Moisture (Azul-wound Skin Appearance No Abnormality ) -Color (Azul-wound Skin Appearance) No Abnormality -Temperature (Azul-wound Skin No Abnormality Appearance) (Pt Warm) -Tenderness on Palpation (Azul-wound No Skin Appearance) -Ulcer Cleansing Rinsed/ Irrigated with Saline -Foul Odor after Cleansing No -Anesthetic Used 4% Lidocaine Solution MAURIZIO - Nurse 2 - General Ulcer CM Notes Start: 11/29/17 14:29 Freq: Status: Active Protocol: Activity Type Activity Date Activity User E-Sign Co-Sign Detail Recorded Client Recorded Date Recorded By Document 12/06/17 15:57 DV [id number] 12/06/17 16:01 DV 12/06/17 15:57 Wound Center Nurse 2 [Procedure/Treatment] -Time 16:00 -Correct Patient Yes -Correct Side, Site, Position Yes -Correct Procedure Yes -Procedure Performed Yes -Type of Procedure Debridement -Clinical Debridement Subcutaneous -Post Debridement Size (cm) - Length 7.0 -Post Debridement Size (cm) - Width 4.0 -Post Debridement Size (cm) - Depth 0.1 -Total Square Cm 28.00 -Wound/Ulcer Outcome Not Healed -Ulcer Cleansing Rinsed/ Irrigated with Saline -Foul Odor after Cleansing No -Bioengineered Tissue No -Bleeding Controlled with Pressure -Treatment Response Procedure Tolerated Well [See Physician Procedure note for Specifics] Pain Scale: 0-10 Numeric [Pain] -Is Patient Pain Free? Yes Psych/Mental Status: Normal Affect, Alert and oriented to time, place, person, mood and affect Debridement Note Post-Debridement Measurements/Treatment WC - Nurse 2 - General Ulcer CM Notes Start: 11/29/17 14:29 Freq: Status: Active Protocol: Activity Type Activity Date Activity User E-Sign Co-Sign Detail Recorded Client Recorded Date Recorded By Document 11/29/17 15:37 DV [id number] 11/29/17 15:40 DV Document 12/06/17 15:57 DV [id number] 12/06/17 16:01 DV 11/29/17 12/06/17 15:37 15:57 Wound Center Nurse 2 #6 Right gluteal fold -Time 15:37 16:00 -Correct Patient Yes Yes -Correct Side, Site, Position Yes Yes -Correct Procedure Yes Yes -Procedure Performed Yes Yes -Type of Procedure Debridement Debridement -Clinical Debridement Subcutaneous Subcutaneous -Post Debridement Size (cm) - Length 0.5 7.0 -Post Debridement Size (cm) - Width 3.5 4.0 -Post Debridement Size (cm) - Depth 0.1 0.1 -Total Square Cm 1.75 28.00 -Wound/Ulcer Outcome Not Healed Not Healed -Ulcer Cleansing Rinsed/ Rinsed/ Irrigated with Irrigated with Saline Saline -Foul Odor after Cleansing No No -Bioengineered Tissue No No -Bleeding Controlled with Pressure Pressure -Treatment Response Procedure Procedure Tolerated Well Tolerated Well Pain Scale: 0-10 Numeric Is Patient Pain Free? Yes Yes Wound debrided: Right gluteal fold ulceration Laterality: Right Type of Debridement: Excisional debridement Anesthesia Used: 5% Lidocaine Gel Depth: in the subcutaneous layer Percentage of wound debrided: 100 Instrument Used: 5mm curette Tissue Removed: slough and macerated tissue edges Severity: Fat Layer Exposed Amount of bleeding with debridement: Mild Bleeding Controlled with: Pressure Patient tolerated procedure well Assessment/Plan Active Problems Non-healing ulcer of buttock with fat layer exposed (Acute) Right gluteal fold Chronic venous insufficiency (Chronic) Obesity (Chronic) Immobility (Acute) Assessment: right gluteal fold ulcer deteriorated Plan: The patient was seen and evaluated in the wound center today and updated on her plan of care. She does have a ulcer of the right gluteal fold which appears to be related to a shear injury and has been worsened due to her Gonzalez catheter leaking. Patient states that she will be following up with urology next week to replace Gonzalez catheter. Subcutaneous excisional debridement was performed today. She would benefit from having a low air loss mattress or gel mattress at the nursing facility where she resides. Would also benefit from offloading with frequent repositioning changes at least hourly and every 2 hours at night. Baseline blood work reviewed and stable. Right gluteal fold ulcer will be dressed with promogran and optofoam gentle daily. Discussed with patient the importance of adequate nutrition intake. Wound cultures were collected previously and reviewed and showed positive for staph. She did complete a course of Bactrim DS. Patient was previously on Rocephin IV for chronic UTI as well. Did discuss with patient how her bowel incontinence can negatively impact wound healing. Discussed also the impact of skin shearing and that she may benefit from the use of incontinence chucks rather than the incontinence briefs that have been shearing her skin. She will follow-up in 1 week with the wound care center. This note was generated with [employer] dictation software. It may contain incorrect words, spelling, and punctuation that were not noted in checking the note before signing. Code Visit 111xxx-113xx: [id number] Jennifer subq tissue 20 sq cm/<
--- NOTE | 2017-12-07 17:00 | PN.PCM_ITS ---
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 Comment: Right gluteal fold (2) Immobility Status: Acute Current Visit: Yes Code(s): Z74.09 - Other reduced mobility (3) Chronic venous insufficiency Status: Chronic Current Visit: Yes (4) HTN (hypertension) Status: Chronic Current Visit: No Code(s): I10 - Essential (primary) hypertension (5) Obesity Status: Chronic Current Visit: Yes Code(s): E66.9 - Obesity, unspecified Type of Wound Date of Service: 12/07/17 Chief Complaint: Wound on back of right thigh, wound right gluteal fold History of Wound: This is a 42-year-old -[place] female with a past medical history as described above presents to the wound care center with complaints of a wound on her back of her right thigh. The patient currently resides in a nursing facility due to her mobility issues. She states that she has had problems with this wound on and off for the past couple of years since 2013. Patient is a poor historian. SHe states that at the nursing facility, they have been using calmoseptine. She states that she attempts to be repositioned a couple times per night to keep pressure off of the site. She denies having a specialized low air loss mattress. She does have a chronic gonzalez catheter in place. She denies any drainage, pain, or foul smell from the wound. She denies any systemic signs of infection. She denies any other associated or aggravating symptoms. Progress of Wound: Nonhealing ulcer present right gluteal fold. Deteriorated, patient states that he has been more as excoriated lately due to her Gonzalez catheter being improperly placed and constantly leaking. denies any pain or foul -smelling discharge. - Physical Exam Vital Signs Temp Pulse Resp BP 97.6 F L 86 16 133/94 H 12/06/17 14:09 12/06/17 14:09 12/06/17 14:09 12/06/17 14:09 General: Alert, Oriented x3 HEENT: Atraumatic Cardiovascular: Regular rate Extremities: No clubbing, No cyanosis, No edema Skin: Ulcer/ Wound - Right gluteal fold, deteriorated due to urine excoriation, site is very superficial with small amount of slough and macerated tissue edges present. No signs of inflammation or discharge or foul smell at this time. Wound Measurements and Assessment WC - Nurse 1 - General Ulcer Measurement Start: 11/29/17 14:29 Freq: Status: Active Protocol: Activity Type Activity Date Activity User E-Sign Co-Sign Detail Recorded Client Recorded Date Recorded By Document 12/06/17 14:09 TINY [id number] 12/06/17 14:40 TINY 12/06/17 14:09 Wound Center Nurse 1 [Ulcer Assessment] #6 Right gluteal fold -Combined with other wound No -Current Size (cm) - Length 2.0 -Current Size (cm) - Width 5.8 -Current Size (cm) - Depth 0.1 -Total Square Cm 11.60 -Date of Last Picture (Recall this 12/06/17 field) -Photo Taken Yes -Epithelialization Small 1-33% -Tunneling No -Undermining/Tunneling No -Circular Undermining No -Classification - Thickness Full Thickness without Exposed Support Structure -Classification - Pressure Ulcer Stage 1 -Exudate Amt Small (1-33%) -Exudate Type Serosanguineous -Wound Margin Distinct, Outline Attached -Granulation Amt None Present (0 %) -Slough/Fibrin Yes -Necrosis Amt None Present (0 %) -Necrotic Tissue Type Adherent Slough -Structure Exposed N/A -Texture (Azul-wound Skin Appearance) No Abnormality -Moisture (Azul-wound Skin Appearance No Abnormality ) -Color (Azul-wound Skin Appearance) No Abnormality -Temperature (Azul-wound Skin No Abnormality Appearance) (Pt Warm) -Tenderness on Palpation (Azul-wound No Skin Appearance) -Ulcer Cleansing Rinsed/ Irrigated with Saline -Foul Odor after Cleansing No -Anesthetic Used 4% Lidocaine Solution MAURIZIO - Nurse 2 - General Ulcer CM Notes Start: 11/29/17 14:29 Freq: Status: Active Protocol: Activity Type Activity Date Activity User E-Sign Co-Sign Detail Recorded Client Recorded Date Recorded By Document 12/06/17 15:57 DV [id number] 12/06/17 16:01 DV 12/06/17 15:57 Wound Center Nurse 2 [Procedure/Treatment] -Time 16:00 -Correct Patient Yes -Correct Side, Site, Position Yes -Correct Procedure Yes -Procedure Performed Yes -Type of Procedure Debridement -Clinical Debridement Subcutaneous -Post Debridement Size (cm) - Length 7.0 -Post Debridement Size (cm) - Width 4.0 -Post Debridement Size (cm) - Depth 0.1 -Total Square Cm 28.00 -Wound/Ulcer Outcome Not Healed -Ulcer Cleansing Rinsed/ Irrigated with Saline -Foul Odor after Cleansing No -Bioengineered Tissue No -Bleeding Controlled with Pressure -Treatment Response Procedure Tolerated Well [See Physician Procedure note for Specifics] Pain Scale: 0-10 Numeric [Pain] -Is Patient Pain Free? Yes Psych/Mental Status: Normal Affect, Alert and oriented to time, place, person, mood and affect Debridement Note Post-Debridement Measurements/Treatment WC - Nurse 2 - General Ulcer CM Notes Start: 11/29/17 14:29 Freq: Status: Active Protocol: Activity Type Activity Date Activity User E-Sign Co-Sign Detail Recorded Client Recorded Date Recorded By Document 11/29/17 15:37 DV [id number] 11/29/17 15:40 DV Document 12/06/17 15:57 DV [id number] 12/06/17 16:01 DV 11/29/17 12/06/17 15:37 15:57 Wound Center Nurse 2 #6 Right gluteal fold -Time 15:37 16:00 -Correct Patient Yes Yes -Correct Side, Site, Position Yes Yes -Correct Procedure Yes Yes -Procedure Performed Yes Yes -Type of Procedure Debridement Debridement -Clinical Debridement Subcutaneous Subcutaneous -Post Debridement Size (cm) - Length 0.5 7.0 -Post Debridement Size (cm) - Width 3.5 4.0 -Post Debridement Size (cm) - Depth 0.1 0.1 -Total Square Cm 1.75 28.00 -Wound/Ulcer Outcome Not Healed Not Healed -Ulcer Cleansing Rinsed/ Rinsed/ Irrigated with Irrigated with Saline Saline -Foul Odor after Cleansing No No -Bioengineered Tissue No No -Bleeding Controlled with Pressure Pressure -Treatment Response Procedure Procedure Tolerated Well Tolerated Well Pain Scale: 0-10 Numeric Is Patient Pain Free? Yes Yes Wound debrided: Right gluteal fold ulceration Laterality: Right Type of Debridement: Excisional debridement Anesthesia Used: 5% Lidocaine Gel Depth: in the subcutaneous layer Percentage of wound debrided: 100 Instrument Used: 5mm curette Tissue Removed: slough and macerated tissue edges Severity: Fat Layer Exposed Amount of bleeding with debridement: Mild Bleeding Controlled with: Pressure Patient tolerated procedure well Assessment/Plan Active Problems Non-healing ulcer of buttock with fat layer exposed (Acute) Right gluteal fold Chronic venous insufficiency (Chronic) Obesity (Chronic) Immobility (Acute) Assessment: right gluteal fold ulcer deteriorated Plan: The patient was seen and evaluated in the wound center today and updated on her plan of care. She does have a ulcer of the right gluteal fold which appears to be related to a shear injury and has been worsened due to her Gonzalez catheter leaking. Patient states that she will be following up with urology next week to replace Gonzalez catheter. Subcutaneous excisional debridement was performed today. She would benefit from having a low air loss mattress or gel mattress at the nursing facility where she resides. Would also benefit from offloading with frequent repositioning changes at least hourly and every 2 hours at night. Baseline blood work reviewed and stable. Right gluteal fold ulcer will be dressed with promogran and optofoam gentle daily. Discussed with patient the importance of adequate nutrition intake. Wound cultures were collected previously and reviewed and showed positive for staph. She did complete a course of Bactrim DS. Patient was previously on Rocephin IV for chronic UTI as well. Did discuss with patient how her bowel incontinence can negatively impact wound healing. Discussed also the impact of skin shearing and that she may benefit from the use of incontinence chucks rather than the incontinence briefs that have been shearing her skin. She will follow-up in 1 week with the wound care center. This note was generated with [employer] dictation software. It may contain incorrect words, spelling, and punctuation that were not noted in checking the note before signing. Code Visit 111xxx-113xx: [id number] Jennifer subq tissue 20 sq cm/<
[2017-12-13 13:39] VITALS: BP 106/77; PULSE 77; RESP 16; TEMP 36.8; BMI 44.2
--- NOTE | 2017-12-13 17:36 | PCM.WC.PN ---
(1) Non-healing ulcer of buttock with fat layer exposed Status: Acute Code(s): L98.412 - Non-pressure chronic ulcer of buttock with fat layer exposed Comment: Right gluteal fold (2) Immobility Status: Acute Code(s): Z74.09 - Other reduced mobility (3) Chronic venous insufficiency Status: Chronic (4) HTN (hypertension) Status: Chronic Code(s): I10 - Essential (primary) hypertension (5) Obesity Status: Chronic Code(s): E66.9 - Obesity, unspecified Type of Wound Date of Service: 12/13/17 Chief Complaint: wound right gluteal fold History of Wound: This is a 42-year-old -[place] female with a past medical history as described above presents to the wound care center with complaints of a wound on her back of her right thigh. The patient currently resides in a nursing facility due to her mobility issues. She states that she has had problems with this wound on and off for the past couple of years since 2013. Patient is a poor historian. SHe states that at the nursing facility, they have been using calmoseptine. She states that she attempts to be repositioned a couple times per night to keep pressure off of the site. She denies having a specialized low air loss mattress. She does have a chronic gonzalez catheter in place. She denies any drainage, pain, or foul smell from the wound. She denies any systemic signs of infection. She denies any other associated or aggravating symptoms. Progress of Wound: Nonhealing ulcer present right gluteal fold. Stable since new insertion of gonzalez catheter which has not been leaking as much, denies any pain or foul-smelling discharge. - Physical Exam Vital Signs Temp Pulse Resp BP 98.2 F 77 16 106/77 12/13/17 13:39 12/13/17 13:39 12/13/17 13:39 12/13/17 13:39 General: Alert, Oriented x3 Cardiovascular: Regular rate Extremities: No edema, Peripheral Pulses Normal Skin: Ulcer/ Wound Neurological: Neuro grossly intact Psych/Mental Status: Normal Affect, Alert and oriented to time, place, person, mood and affect Debridement Note Post-Debridement Measurements/Treatment WC - Nurse 2 - General Ulcer CM Notes Start: 11/29/17 14:29 Freq: Status: Active Protocol: Activity Type Activity Date Activity User E-Sign Co-Sign Detail Recorded Client Recorded Date Recorded By Document 11/29/17 15:37 DV [id number] 11/29/17 15:40 DV Document 12/06/17 15:57 DV [id number] 12/06/17 16:01 DV Document 12/13/17 14:06 DV [id number] 12/13/17 14:15 DV 11/29/17 12/06/17 12/13/17 15:37 15:57 14:06 Wound Center Nurse 2 #6 Right gluteal fold -Time 15:37 16:00 14:07 -Correct Patient Yes Yes Yes -Correct Side, Site, Position Yes Yes Yes -Correct Procedure Yes Yes Yes -Procedure Performed Yes Yes Yes -Type of Procedure Debridement Debridement Debridement -Clinical Debridement Subcutaneous Subcutaneous Subcutaneous -Post Debridement Size (cm) - Length 0.5 7.0 5.0 -Post Debridement Size (cm) - Width 3.5 4.0 1.0 -Post Debridement Size (cm) - Depth 0.1 0.1 0.1 -Total Square Cm 1.75 28.00 5.00 -Wound/Ulcer Outcome Not Healed Not Healed Not Healed -Ulcer Cleansing Rinsed/ Rinsed/ Rinsed/ Irrigated with Irrigated with Irrigated with Saline Saline Saline -Foul Odor after Cleansing No No No -Bioengineered Tissue No No No -Bleeding Controlled with Pressure Pressure Pressure -Treatment Response Procedure Procedure Procedure Tolerated Well Tolerated Well Tolerated Well Pain Scale: 0-10 Numeric Is Patient Pain Free? Yes Yes Yes Wound debrided: Right gluteal fold Laterality: Right Type of Debridement: Excisional debridement Anesthesia Used: 5% Lidocaine Gel Depth: in the subcutaneous layer Percentage of wound debrided: 100 Instrument Used: 5mm curette Tissue Removed: Slough Severity: Fat Layer Exposed Amount of bleeding with debridement: Mild Bleeding Controlled with: Pressure Patient tolerated procedure well Assessment/Plan Assessment: right gluteal fold ulcer stable and improving Plan: The patient was seen and evaluated in the wound center today and updated on her plan of care. She does have a ulcer of the right gluteal fold which appears to be related to a shear injury and has been worsened due to her Gonzalez catheter leaking and has since improved since eating the Gonzalez catheter reinserted. Subcutaneous excisional debridement was performed today. She would benefit from having a low air loss mattress or gel mattress at the nursing facility where she resides. Would also benefit from offloading with frequent repositioning changes at least hourly and every 2 hours at night. Baseline blood work reviewed and stable. Right gluteal fold ulcer will be dressed with promogran and optofoam gentle daily. Discussed with patient the importance of adequate nutrition intake. Wound cultures were collected previously and reviewed and showed positive for staph. She did complete a course of Bactrim DS. Patient was previously on Rocephin IV for chronic UTI as well. Did discuss with patient how her bowel incontinence can negatively impact wound healing. Discussed also the impact of skin shearing and that she may benefit from the use of incontinence chucks rather than the incontinence briefs that have been shearing her skin. She will follow-up in 1 week with the wound care center. This note was generated with [employer] dictation software. It may contain incorrect words, spelling, and punctuation that were not noted in checking the note before signing. Code Visit 111xxx-113xx: [id number] Jennifer subq tissue 20 sq cm/<
--- NOTE | 2017-12-18 12:46 | PN.PCM_ITS ---
(1) Non-healing ulcer of buttock with fat layer exposed Status: Acute Code(s): L98.412 - Non-pressure chronic ulcer of buttock with fat layer exposed Comment: Right gluteal fold (2) Immobility Status: Acute Code(s): Z74.09 - Other reduced mobility (3) Chronic venous insufficiency Status: Chronic (4) HTN (hypertension) Status: Chronic Code(s): I10 - Essential (primary) hypertension (5) Obesity Status: Chronic Code(s): E66.9 - Obesity, unspecified Type of Wound Date of Service: 12/13/17 Chief Complaint: wound right gluteal fold History of Wound: This is a 42-year-old -[place] female with a past medical history as described above presents to the wound care center with complaints of a wound on her back of her right thigh. The patient currently resides in a nursing facility due to her mobility issues. She states that she has had problems with this wound on and off for the past couple of years since 2013. Patient is a poor historian. SHe states that at the nursing facility, they have been using calmoseptine. She states that she attempts to be repositioned a couple times per night to keep pressure off of the site. She denies having a specialized low air loss mattress. She does have a chronic gonzalez catheter in place. She denies any drainage, pain, or foul smell from the wound. She denies any systemic signs of infection. She denies any other associated or aggravating symptoms. Progress of Wound: Nonhealing ulcer present right gluteal fold. Stable since new insertion of gonzalez catheter which has not been leaking as much, denies any pain or foul-smelling discharge. - Physical Exam Vital Signs Temp Pulse Resp BP 98.2 F 77 16 106/77 12/13/17 13:39 12/13/17 13:39 12/13/17 13:39 12/13/17 13:39 General: Alert, Oriented x3 Cardiovascular: Regular rate Extremities: No edema, Peripheral Pulses Normal Skin: Ulcer/ Wound Neurological: Neuro grossly intact Psych/Mental Status: Normal Affect, Alert and oriented to time, place, person, mood and affect Debridement Note Post-Debridement Measurements/Treatment WC - Nurse 2 - General Ulcer CM Notes Start: 11/29/17 14:29 Freq: Status: Active Protocol: Activity Type Activity Date Activity User E-Sign Co-Sign Detail Recorded Client Recorded Date Recorded By Document 11/29/17 15:37 DV [id number] 11/29/17 15:40 DV Document 12/06/17 15:57 DV [id number] 12/06/17 16:01 DV Document 12/13/17 14:06 DV [id number] 12/13/17 14:15 DV 11/29/17 12/06/17 12/13/17 15:37 15:57 14:06 Wound Center Nurse 2 #6 Right gluteal fold -Time 15:37 16:00 14:07 -Correct Patient Yes Yes Yes -Correct Side, Site, Position Yes Yes Yes -Correct Procedure Yes Yes Yes -Procedure Performed Yes Yes Yes -Type of Procedure Debridement Debridement Debridement -Clinical Debridement Subcutaneous Subcutaneous Subcutaneous -Post Debridement Size (cm) - Length 0.5 7.0 5.0 -Post Debridement Size (cm) - Width 3.5 4.0 1.0 -Post Debridement Size (cm) - Depth 0.1 0.1 0.1 -Total Square Cm 1.75 28.00 5.00 -Wound/Ulcer Outcome Not Healed Not Healed Not Healed -Ulcer Cleansing Rinsed/ Rinsed/ Rinsed/ Irrigated with Irrigated with Irrigated with Saline Saline Saline -Foul Odor after Cleansing No No No -Bioengineered Tissue No No No -Bleeding Controlled with Pressure Pressure Pressure -Treatment Response Procedure Procedure Procedure Tolerated Well Tolerated Well Tolerated Well Pain Scale: 0-10 Numeric Is Patient Pain Free? Yes Yes Yes Wound debrided: Right gluteal fold Laterality: Right Type of Debridement: Excisional debridement Anesthesia Used: 5% Lidocaine Gel Depth: in the subcutaneous layer Percentage of wound debrided: 100 Instrument Used: 5mm curette Tissue Removed: Slough Severity: Fat Layer Exposed Amount of bleeding with debridement: Mild Bleeding Controlled with: Pressure Patient tolerated procedure well Assessment/Plan Assessment: right gluteal fold ulcer stable and improving Plan: The patient was seen and evaluated in the wound center today and updated on her plan of care. She does have a ulcer of the right gluteal fold which appears to be related to a shear injury and has been worsened due to her Gonzalez catheter leaking and has since improved since eating the Gonzalez catheter reinserted. Subcutaneous excisional debridement was performed today. She would benefit from having a low air loss mattress or gel mattress at the nursing facility where she resides. Would also benefit from offloading with frequent repositioning changes at least hourly and every 2 hours at night. Baseline blood work reviewed and stable. Right gluteal fold ulcer will be dressed with promogran and optofoam gentle daily. Discussed with patient the importance of adequate nutrition intake. Wound cultures were collected previously and reviewed and showed positive for staph. She did complete a course of Bactrim DS. Patient was previously on Rocephin IV for chronic UTI as well. Did discuss with patient how her bowel incontinence can negatively impact wound healing. Discussed also the impact of skin shearing and that she may benefit from the use of incontinence chucks rather than the incontinence briefs that have been shearing her skin. She will follow-up in 1 week with the wound care center. This note was generated with [employer] dictation software. It may contain incorrect words, spelling, and punctuation that were not noted in checking the note before signing. Code Visit 111xxx-113xx: [id number] Jennifer subq tissue 20 sq cm/<
[2017-12-20 13:41] VITALS: BP 120/98; PULSE 98; RESP 18; TEMP 37.1; BMI 44.2
--- NOTE | 2017-12-20 16:24 | PCM.WC.PN ---
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 Status: Acute Current Visit: No Code(s): L98.412 - Non-pressure chronic ulcer of buttock with fat layer exposed Comment: Right gluteal fold (3) Immobility Status: Acute Current Visit: No Code(s): Z74.09 - Other reduced mobility (4) Chronic venous insufficiency Status: Chronic Current Visit: No (5) HTN (hypertension) Status: Chronic Current Visit: No Code(s): I10 - Essential (primary) hypertension (6) Obesity Status: Chronic Current Visit: No Code(s): E66.9 - Obesity, unspecified Type of Wound Date of Service: 12/20/17 Chief Complaint: wound right gluteal fold, 12/20/17 new shear ulceration left posterior thigh History of Wound: This is a 42-year-old -[place]ish female with a past medical history as described above presents to the wound care center with complaints of a wound on her back of her right thigh. The patient currently resides in a nursing facility due to her mobility issues. She states that she has had problems with this wound on and off for the past couple of years since 2013. Patient is a poor historian. SHe states that at the nursing facility, they have been using calmoseptine. She states that she attempts to be repositioned a couple times per night to keep pressure off of the site. She denies having a specialized low air loss mattress. She does have a chronic gonzalez catheter in place. She denies any drainage, pain, or foul smell from the wound. She denies any systemic signs of infection. She denies any other associated or aggravating symptoms. Progress of Wound: Nonhealing ulcer present right gluteal fold. Stable and improved, denies any pain or foul-smelling discharge. The patient does have a new ulceration present on the left posterior inner thigh suspected injury related to shear, patient unsure of how or when this happened, however this was not present the previous week. She also notes that she was recently diagnosed with a UTI and was in the emergency department yesterday and is awaiting a urine culture for antibiotic treatment. She states that she feels fatigued and weak due to the UTI. She otherwise denies any symptoms of systemic infection and is afebrile today in the office. The patient otherwise denies any nausea, vomiting, shortness of breath, chest pain or pressure, palpitations, orthopnea, lower extremity edema, syncope or presyncopal episodes. - Physical Exam Vital Signs Temp Pulse Resp BP 98.7 F 98 18 120/98 H 12/20/17 13:41 12/20/17 13:41 12/20/17 13:41 12/20/17 13:41 General: Alert, Oriented x3 HEENT: Atraumatic Lungs: Clear to auscultation, Normal air movement Cardiovascular: Regular rate Extremities: No clubbing, No cyanosis, No edema Skin: Ulcer/ Wound - Ulcer present right gluteal fold with slough, ulceration present left posterior thigh appears related to shear injury, slough present, no signs of infection., - - Dry skin present bilateral lower extremities Wound Measurements and Assessment WC - Nurse 1 - General Ulcer Measurement Start: 11/29/17 14:29 Freq: Status: Active Protocol: Activity Type Activity Date Activity User E-Sign Co-Sign Detail Recorded Client Recorded Date Recorded By Document 12/20/17 13:41 DL [id number] 12/20/17 13:50 DL 12/20/17 13:41 Wound Center Nurse 1 [Ulcer Assessment] #7- LT UPPER POST THIGH -Combined with other wound No -Current Size (cm) - Length 1.2 -Current Size (cm) - Width 1.4 -Current Size (cm) - Depth 0.1 -Total Square Cm 1.68 -Date of Last Picture (Recall this 12/20/17 field) -Photo Taken Yes -Epithelialization None Present -Tunneling No -Undermining/Tunneling No -Exudate Amt None Present (0 %) -Wound Margin Distinct, Outline Attached -Granulation Amt Medium (34-66%) -Granulation Quality Red -Slough/Fibrin Yes -Necrosis Amt Small (1-33%) -Necrotic Tissue Type Adherent Slough -Structure Exposed None/Limited to Skin Breakdown -Texture (Azul-wound Skin Appearance) Scarring -Moisture (Azul-wound Skin Appearance Assessed ) -Color (Azul-wound Skin Appearance) Assessed -Temperature (Azul-wound Skin No Abnormality Appearance) (Pt Warm) -Tenderness on Palpation (Azul-wound No Skin Appearance) -Ulcer Cleansing Wound Cleanser -Foul Odor after Cleansing No -Anesthetic Used 4% Lidocaine Solution #6 Right gluteal fold -Combined with other wound No -Current Size (cm) - Length 1 -Current Size (cm) - Width 1.7 -Current Size (cm) - Depth 0.1 -Total Square Cm 1.7 -Photo Taken No -Epithelialization Small 1-33% -Tunneling No -Undermining/Tunneling No -Exudate Amt None Present (0 %) -Exudate Type Serous -Wound Margin Distinct, Outline Attached -Granulation Amt Medium (34-66%) -Granulation Quality Red -Slough/Fibrin Yes -Necrosis Amt Small (1-33%) -Necrotic Tissue Type Adherent Slough -Structure Exposed None/Limited to Skin Breakdown -Texture (Azul-wound Skin Appearance) Scarring -Moisture (Azul-wound Skin Appearance Assessed ) -Color (Azul-wound Skin Appearance) Assessed -Temperature (Azul-wound Skin No Abnormality Appearance) (Pt Warm) -Tenderness on Palpation (Azul-wound No Skin Appearance) -Ulcer Cleansing Rinsed/ Irrigated with Saline -Foul Odor after Cleansing No -Anesthetic Used 4% Lidocaine Solution WC - Nurse 2 - General Ulcer CM Notes Start: 11/29/17 14:29 Freq: Status: Active Protocol: Activity Type Activity Date Activity User E-Sign Co-Sign Detail Recorded Client Recorded Date Recorded By Document 12/20/17 14:21 DV [id number] 12/20/17 14:27 DV 12/20/17 14:21 Wound Center Nurse 2 [Procedure/Treatment] #7- LT UPPER POST THIGH -Time 14:22 -Correct Patient Yes -Correct Side, Site, Position Yes -Correct Procedure Yes -Procedure Performed Yes -Type of Procedure Debridement -Clinical Debridement Subcutaneous -Post Debridement Size (cm) - Length 1.0 -Post Debridement Size (cm) - Width 1.2 -Post Debridement Size (cm) - Depth 0.1 -Total Square Cm 1.20 -Wound/Ulcer Outcome Not Healed -Ulcer Cleansing Rinsed/ Irrigated with Saline -Foul Odor after Cleansing No -Bioengineered Tissue No -Bleeding Controlled with Pressure -Treatment Response Procedure Tolerated Well #6 Right gluteal fold -Time 14:22 -Correct Patient Yes -Correct Side, Site, Position Yes -Correct Procedure Yes -Procedure Performed Yes -Type of Procedure Debridement -Clinical Debridement Subcutaneous -Post Debridement Size (cm) - Length 1.2 -Post Debridement Size (cm) - Width 1.0 -Post Debridement Size (cm) - Depth 0.1 -Total Square Cm 1.20 -Wound/Ulcer Outcome Not Healed -Ulcer Cleansing Rinsed/ Irrigated with Saline -Foul Odor after Cleansing No -Bioengineered Tissue No -Bleeding Controlled with Pressure -Treatment Response Procedure Tolerated Well [See Physician Procedure note for Specifics] Pain Scale: 0-10 Numeric [Pain] -Is Patient Pain Free? Yes Psych/Mental Status: Flat Affect, Alert and oriented to time, place, person, mood and affect Debridement Note Post-Debridement Measurements/Treatment WC - Nurse 2 - General Ulcer CM Notes Start: 11/29/17 14:29 Freq: Status: Active Protocol: Activity Type Activity Date Activity User E-Sign Co-Sign Detail Recorded Client Recorded Date Recorded By Document 11/29/17 15:37 DV [id number] 11/29/17 15:40 DV Document 12/06/17 15:57 DV [id number] 12/06/17 16:01 DV Document 12/13/17 14:06 DV [id number] 12/13/17 14:15 DV Document 12/20/17 14:21 DV [id number] 12/20/17 14:27 DV 11/29/17 12/06/17 12/13/17 15:37 15:57 14:06 Wound Center Nurse 2 #7- LT UPPER POST THIGH -Time -Correct Patient -Correct Side, Site, Position -Correct Procedure -Procedure Performed -Type of Procedure -Clinical Debridement -Post Debridement Size (cm) - Length -Post Debridement Size (cm) - Width -Post Debridement Size (cm) - Depth -Total Square Cm -Wound/Ulcer Outcome -Ulcer Cleansing -Foul Odor after Cleansing -Bioengineered Tissue -Bleeding Controlled with -Treatment Response #6 Right gluteal fold -Time 15:37 16:00 14:07 -Correct Patient Yes Yes Yes -Correct Side, Site, Position Yes Yes Yes -Correct Procedure Yes Yes Yes -Procedure Performed Yes Yes Yes -Type of Procedure Debridement Debridement Debridement -Clinical Debridement Subcutaneous Subcutaneous Subcutaneous -Post Debridement Size (cm) - Length 0.5 7.0 5.0 -Post Debridement Size (cm) - Width 3.5 4.0 1.0 -Post Debridement Size (cm) - Depth 0.1 0.1 0.1 -Total Square Cm 1.75 28.00 5.00 -Wound/Ulcer Outcome Not Healed Not Healed Not Healed -Ulcer Cleansing Rinsed/ Rinsed/ Rinsed/ Irrigated with Irrigated with Irrigated with Saline Saline Saline -Foul Odor after Cleansing No No No -Bioengineered Tissue No No No -Bleeding Controlled with Pressure Pressure Pressure -Treatment Response Procedure Procedure Procedure Tolerated Well Tolerated Well Tolerated Well Pain Scale: 0-10 Numeric Is Patient Pain Free? Yes Yes Yes 12/20/17 14:21 Wound Center Nurse 2 #7- LT UPPER POST THIGH -Time 14:22 -Correct Patient Yes -Correct Side, Site, Position Yes -Correct Procedure Yes -Procedure Performed Yes -Type of Procedure Debridement -Clinical Debridement Subcutaneous -Post Debridement Size (cm) - Length 1.0 -Post Debridement Size (cm) - Width 1.2 -Post Debridement Size (cm) - Depth 0.1 -Total Square Cm 1.20 -Wound/Ulcer Outcome Not Healed -Ulcer Cleansing Rinsed/ Irrigated with Saline -Foul Odor after Cleansing No -Bioengineered Tissue No -Bleeding Controlled with Pressure -Treatment Response Procedure Tolerated Well #6 Right gluteal fold -Time 14:22 -Correct Patient Yes -Correct Side, Site, Position Yes -Correct Procedure Yes -Procedure Performed Yes -Type of Procedure Debridement -Clinical Debridement Subcutaneous -Post Debridement Size (cm) - Length 1.2 -Post Debridement Size (cm) - Width 1.0 -Post Debridement Size (cm) - Depth 0.1 -Total Square Cm 1.20 -Wound/Ulcer Outcome Not Healed -Ulcer Cleansing Rinsed/ Irrigated with Saline -Foul Odor after Cleansing No -Bioengineered Tissue No -Bleeding Controlled with Pressure -Treatment Response Procedure Tolerated Well Pain Scale: 0-10 Numeric Is Patient Pain Free? Yes Wound debrided: Right gluteal fold ulceration Laterality: Right Type of Debridement: Excisional debridement Anesthesia Used: 5% Lidocaine Gel Depth: in the subcutaneous layer Percentage of wound debrided: 100 Instrument Used: 5mm curette Tissue Removed: Slough and fibrous tissue Severity: Fat Layer Exposed Amount of bleeding with debridement: Mild Bleeding Controlled with: Pressure Patient tolerated procedure well - Additional Wound Wound debrided: Left posterior thigh Laterality: Left Type of Debridement: Excisional debridement Anesthesia Used: 4% Lidocaine Solution Depth: in the subcutaneous layer Percentage of wound debrided: 100 Instrument Used: 3mm curette Tissue Removed: Slough and macerated wound edges Severity: Fat Layer Exposed Amount of bleeding with debridement: Mild Bleeding Controlled with: Pressure Patient tolerated procedure: Patient tolerated procedure well Assessment/Plan Active Problems Chronic ulcer of left thigh with fat layer exposed (Acute) Shear related Assessment: right gluteal fold ulcer stable and improving. Left posterior thigh ulceration, suspect shear injury Plan: The patient was seen and evaluated in the wound center today and updated on her plan of care. She does have a ulcer of the right gluteal fold which appears to be related to a shear injury and has been worsened previously due to her suprapubic catheter leaking and has since improved since having the catheter reinserted. 12/20/2017, she does have a new ulceration present left posterior thigh that appears to be related to shear injury as well. Discussed with patient that regarding her plan of care, she should not wear her incontinence briefs as this may be worsening her shear injuries and should use an incontinence paige instead and also reinforced the fact that when she is being lifted using the Mahendra lift, she needs to make sure that the straps that go around her inner thighs are well cushioned to prevent further shear injury. Subcutaneous excisional debridement was performed today. The patient tolerated well. Would also benefit from offloading with frequent repositioning changes at least hourly and every 2 hours at night. Baseline blood work reviewed and stable. Right gluteal fold ulcer and left posterior thigh ulcer will be dressed with promogran and optofoam gentle daily. Discussed with patient the importance of adequate nutrition intake. Wound cultures were collected previously and reviewed and showed positive for staph. Pending patient's urine culture, she is going to be placed on an antibiotic for her cystitis. Did discuss with patient how her bowel incontinence can negatively impact wound healing. She will follow-up in 1 week with the wound care center. This note was generated with [employer] dictation software. It may contain incorrect words, spelling, and punctuation that were not noted in checking the note before signing. Code Visit Office Visits / Consults: [id number] OV L3 Est [id number]: [id number] Jennifer subq tissue 20 sq cm/<
--- NOTE | 2017-12-23 10:34 | PN.PCM_ITS ---
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 Status: Acute Current Visit: No Code(s): L98.412 - Non-pressure chronic ulcer of buttock with fat layer exposed Comment: Right gluteal fold (3) Immobility Status: Acute Current Visit: No Code(s): Z74.09 - Other reduced mobility (4) Chronic venous insufficiency Status: Chronic Current Visit: No (5) HTN (hypertension) Status: Chronic Current Visit: No Code(s): I10 - Essential (primary) hypertension (6) Obesity Status: Chronic Current Visit: No Code(s): E66.9 - Obesity, unspecified Type of Wound Date of Service: 12/20/17 Chief Complaint: wound right gluteal fold, 12/20/17 new shear ulceration left posterior thigh History of Wound: This is a 42-year-old -[place] female with a past medical history as described above presents to the wound care center with complaints of a wound on her back of her right thigh. The patient currently resides in a nursing facility due to her mobility issues. She states that she has had problems with this wound on and off for the past couple of years since 2013. Patient is a poor historian. SHe states that at the nursing facility, they have been using calmoseptine. She states that she attempts to be repositioned a couple times per night to keep pressure off of the site. She denies having a specialized low air loss mattress. She does have a chronic gonzalez catheter in place. She denies any drainage, pain, or foul smell from the wound. She denies any systemic signs of infection. She denies any other associated or aggravating symptoms. Progress of Wound: Nonhealing ulcer present right gluteal fold. Stable and improved, denies any pain or foul-smelling discharge. The patient does have a new ulceration present on the left posterior inner thigh suspected injury related to shear, patient unsure of how or when this happened, however this was not present the previous week. She also notes that she was recently diagnosed with a UTI and was in the emergency department yesterday and is awaiting a urine culture for antibiotic treatment. She states that she feels fatigued and weak due to the UTI. She otherwise denies any symptoms of systemic infection and is afebrile today in the office. The patient otherwise denies any nausea, vomiting, shortness of breath, chest pain or pressure, palpitations, orthopnea, lower extremity edema, syncope or presyncopal episodes. - Physical Exam Vital Signs Temp Pulse Resp BP 98.7 F 98 18 120/98 H 12/20/17 13:41 12/20/17 13:41 12/20/17 13:41 12/20/17 13:41 General: Alert, Oriented x3 HEENT: Atraumatic Lungs: Clear to auscultation, Normal air movement Cardiovascular: Regular rate Extremities: No clubbing, No cyanosis, No edema Skin: Ulcer/ Wound - Ulcer present right gluteal fold with slough, ulceration present left posterior thigh appears related to shear injury, slough present, no signs of infection., - - Dry skin present bilateral lower extremities Wound Measurements and Assessment WC - Nurse 1 - General Ulcer Measurement Start: 11/29/17 14:29 Freq: Status: Active Protocol: Activity Type Activity Date Activity User E-Sign Co-Sign Detail Recorded Client Recorded Date Recorded By Document 12/20/17 13:41 DL [id number] 12/20/17 13:50 DL 12/20/17 13:41 Wound Center Nurse 1 [Ulcer Assessment] #7- LT UPPER POST THIGH -Combined with other wound No -Current Size (cm) - Length 1.2 -Current Size (cm) - Width 1.4 -Current Size (cm) - Depth 0.1 -Total Square Cm 1.68 -Date of Last Picture (Recall this 12/20/17 field) -Photo Taken Yes -Epithelialization None Present -Tunneling No -Undermining/Tunneling No -Exudate Amt None Present (0 %) -Wound Margin Distinct, Outline Attached -Granulation Amt Medium (34-66%) -Granulation Quality Red -Slough/Fibrin Yes -Necrosis Amt Small (1-33%) -Necrotic Tissue Type Adherent Slough -Structure Exposed None/Limited to Skin Breakdown -Texture (Azul-wound Skin Appearance) Scarring -Moisture (Azul-wound Skin Appearance Assessed ) -Color (Azul-wound Skin Appearance) Assessed -Temperature (Azul-wound Skin No Abnormality Appearance) (Pt Warm) -Tenderness on Palpation (Azul-wound No Skin Appearance) -Ulcer Cleansing Wound Cleanser -Foul Odor after Cleansing No -Anesthetic Used 4% Lidocaine Solution #6 Right gluteal fold -Combined with other wound No -Current Size (cm) - Length 1 -Current Size (cm) - Width 1.7 -Current Size (cm) - Depth 0.1 -Total Square Cm 1.7 -Photo Taken No -Epithelialization Small 1-33% -Tunneling No -Undermining/Tunneling No -Exudate Amt None Present (0 %) -Exudate Type Serous -Wound Margin Distinct, Outline Attached -Granulation Amt Medium (34-66%) -Granulation Quality Red -Slough/Fibrin Yes -Necrosis Amt Small (1-33%) -Necrotic Tissue Type Adherent Slough -Structure Exposed None/Limited to Skin Breakdown -Texture (Azul-wound Skin Appearance) Scarring -Moisture (Azul-wound Skin Appearance Assessed ) -Color (Azul-wound Skin Appearance) Assessed -Temperature (Azul-wound Skin No Abnormality Appearance) (Pt Warm) -Tenderness on Palpation (Azul-wound No Skin Appearance) -Ulcer Cleansing Rinsed/ Irrigated with Saline -Foul Odor after Cleansing No -Anesthetic Used 4% Lidocaine Solution WC - Nurse 2 - General Ulcer CM Notes Start: 11/29/17 14:29 Freq: Status: Active Protocol: Activity Type Activity Date Activity User E-Sign Co-Sign Detail Recorded Client Recorded Date Recorded By Document 12/20/17 14:21 DV [id number] 12/20/17 14:27 DV 12/20/17 14:21 Wound Center Nurse 2 [Procedure/Treatment] #7- LT UPPER POST THIGH -Time 14:22 -Correct Patient Yes -Correct Side, Site, Position Yes -Correct Procedure Yes -Procedure Performed Yes -Type of Procedure Debridement -Clinical Debridement Subcutaneous -Post Debridement Size (cm) - Length 1.0 -Post Debridement Size (cm) - Width 1.2 -Post Debridement Size (cm) - Depth 0.1 -Total Square Cm 1.20 -Wound/Ulcer Outcome Not Healed -Ulcer Cleansing Rinsed/ Irrigated with Saline -Foul Odor after Cleansing No -Bioengineered Tissue No -Bleeding Controlled with Pressure -Treatment Response Procedure Tolerated Well #6 Right gluteal fold -Time 14:22 -Correct Patient Yes -Correct Side, Site, Position Yes -Correct Procedure Yes -Procedure Performed Yes -Type of Procedure Debridement -Clinical Debridement Subcutaneous -Post Debridement Size (cm) - Length 1.2 -Post Debridement Size (cm) - Width 1.0 -Post Debridement Size (cm) - Depth 0.1 -Total Square Cm 1.20 -Wound/Ulcer Outcome Not Healed -Ulcer Cleansing Rinsed/ Irrigated with Saline -Foul Odor after Cleansing No -Bioengineered Tissue No -Bleeding Controlled with Pressure -Treatment Response Procedure Tolerated Well [See Physician Procedure note for Specifics] Pain Scale: 0-10 Numeric [Pain] -Is Patient Pain Free? Yes Psych/Mental Status: Flat Affect, Alert and oriented to time, place, person, mood and affect Debridement Note Post-Debridement Measurements/Treatment WC - Nurse 2 - General Ulcer CM Notes Start: 11/29/17 14:29 Freq: Status: Active Protocol: Activity Type Activity Date Activity User E-Sign Co-Sign Detail Recorded Client Recorded Date Recorded By Document 11/29/17 15:37 DV [id number] 11/29/17 15:40 DV Document 12/06/17 15:57 DV [id number] 12/06/17 16:01 DV Document 12/13/17 14:06 DV [id number] 12/13/17 14:15 DV Document 12/20/17 14:21 DV [id number] 12/20/17 14:27 DV 11/29/17 12/06/17 12/13/17 15:37 15:57 14:06 Wound Center Nurse 2 #7- LT UPPER POST THIGH -Time -Correct Patient -Correct Side, Site, Position -Correct Procedure -Procedure Performed -Type of Procedure -Clinical Debridement -Post Debridement Size (cm) - Length -Post Debridement Size (cm) - Width -Post Debridement Size (cm) - Depth -Total Square Cm -Wound/Ulcer Outcome -Ulcer Cleansing -Foul Odor after Cleansing -Bioengineered Tissue -Bleeding Controlled with -Treatment Response #6 Right gluteal fold -Time 15:37 16:00 14:07 -Correct Patient Yes Yes Yes -Correct Side, Site, Position Yes Yes Yes -Correct Procedure Yes Yes Yes -Procedure Performed Yes Yes Yes -Type of Procedure Debridement Debridement Debridement -Clinical Debridement Subcutaneous Subcutaneous Subcutaneous -Post Debridement Size (cm) - Length 0.5 7.0 5.0 -Post Debridement Size (cm) - Width 3.5 4.0 1.0 -Post Debridement Size (cm) - Depth 0.1 0.1 0.1 -Total Square Cm 1.75 28.00 5.00 -Wound/Ulcer Outcome Not Healed Not Healed Not Healed -Ulcer Cleansing Rinsed/ Rinsed/ Rinsed/ Irrigated with Irrigated with Irrigated with Saline Saline Saline -Foul Odor after Cleansing No No No -Bioengineered Tissue No No No -Bleeding Controlled with Pressure Pressure Pressure -Treatment Response Procedure Procedure Procedure Tolerated Well Tolerated Well Tolerated Well Pain Scale: 0-10 Numeric Is Patient Pain Free? Yes Yes Yes 12/20/17 14:21 Wound Center Nurse 2 #7- LT UPPER POST THIGH -Time 14:22 -Correct Patient Yes -Correct Side, Site, Position Yes -Correct Procedure Yes -Procedure Performed Yes -Type of Procedure Debridement -Clinical Debridement Subcutaneous -Post Debridement Size (cm) - Length 1.0 -Post Debridement Size (cm) - Width 1.2 -Post Debridement Size (cm) - Depth 0.1 -Total Square Cm 1.20 -Wound/Ulcer Outcome Not Healed -Ulcer Cleansing Rinsed/ Irrigated with Saline -Foul Odor after Cleansing No -Bioengineered Tissue No -Bleeding Controlled with Pressure -Treatment Response Procedure Tolerated Well #6 Right gluteal fold -Time 14:22 -Correct Patient Yes -Correct Side, Site, Position Yes -Correct Procedure Yes -Procedure Performed Yes -Type of Procedure Debridement -Clinical Debridement Subcutaneous -Post Debridement Size (cm) - Length 1.2 -Post Debridement Size (cm) - Width 1.0 -Post Debridement Size (cm) - Depth 0.1 -Total Square Cm 1.20 -Wound/Ulcer Outcome Not Healed -Ulcer Cleansing Rinsed/ Irrigated with Saline -Foul Odor after Cleansing No -Bioengineered Tissue No -Bleeding Controlled with Pressure -Treatment Response Procedure Tolerated Well Pain Scale: 0-10 Numeric Is Patient Pain Free? Yes Wound debrided: Right gluteal fold ulceration Laterality: Right Type of Debridement: Excisional debridement Anesthesia Used: 5% Lidocaine Gel Depth: in the subcutaneous layer Percentage of wound debrided: 100 Instrument Used: 5mm curette Tissue Removed: Slough and fibrous tissue Severity: Fat Layer Exposed Amount of bleeding with debridement: Mild Bleeding Controlled with: Pressure Patient tolerated procedure well - Additional Wound Wound debrided: Left posterior thigh Laterality: Left Type of Debridement: Excisional debridement Anesthesia Used: 4% Lidocaine Solution Depth: in the subcutaneous layer Percentage of wound debrided: 100 Instrument Used: 3mm curette Tissue Removed: Slough and macerated wound edges Severity: Fat Layer Exposed Amount of bleeding with debridement: Mild Bleeding Controlled with: Pressure Patient tolerated procedure: Patient tolerated procedure well Assessment/Plan Active Problems Chronic ulcer of left thigh with fat layer exposed (Acute) Shear related Assessment: right gluteal fold ulcer stable and improving. Left posterior thigh ulceration, suspect shear injury Plan: The patient was seen and evaluated in the wound center today and updated on her plan of care. She does have a ulcer of the right gluteal fold which appears to be related to a shear injury and has been worsened previously due to her suprapubic catheter leaking and has since improved since having the catheter reinserted. 12/20/2017, she does have a new ulceration present left posterior thigh that appears to be related to shear injury as well. Discussed with patient that regarding her plan of care, she should not wear her incontinence briefs as this may be worsening her shear injuries and should use an incontinence paige instead and also reinforced the fact that when she is being lifted using the Mahendra lift, she needs to make sure that the straps that go around her inner thighs are well cushioned to prevent further shear injury. Subcutaneous excisional debridement was performed today. The patient tolerated well. Would also benefit from offloading with frequent repositioning changes at least hourly and every 2 hours at night. Baseline blood work reviewed and stable. Right gluteal fold ulcer and left posterior thigh ulcer will be dressed with promogran and optofoam gentle daily. Discussed with patient the importance of adequate nutrition intake. Wound cultures were collected previously and reviewed and showed positive for staph. Pending patient's urine culture, she is going to be placed on an antibiotic for her cystitis. Did discuss with patient how her bowel incontinence can negatively impact wound healing. She will follow-up in 1 week with the wound care center. This note was generated with [employer] dictation software. It may contain incorrect words, spelling, and punctuation that were not noted in checking the note before signing. Code Visit Office Visits / Consults: [id number] OV L3 Est [id number]: [id number] Jennifer subq tissue 20 sq cm/<
== END 2017-12-29 23:59 ==
LOC: WC 13:00
PROVIDERS: Family Provider Family Medicine; PCP Family Medicine; Visit Provider Nurse Practitioner Family
DX: I87.2 Venous insufficiency (chronic) (peripheral) (principal); Z74.09 Other reduced mobility; L98.412 Non-pressure chronic ulcer of buttock with fat layer exposed; E66.9 Obesity, unspecified; Z68.41 Body mass index [BMI] 40.0-44.9, adult; R15.9 Full incontinence of feces; N39.0 Urinary tract infection, site not specified; L97.122 Non-pressure chronic ulcer of left thigh with fat layer exposed
CPT/HCPCS: 11042; 11045

== ENCOUNTER 2018-01-17 10:45 | Outpatient (RCR) | payer MEDICAID, SELFPAY ==
[2017-12-30 00:44] VITALS: BP 115/73; PULSE 98; RESP 18; TEMP 37.1; BMI 44.2
== END 2018-01-28 23:59 ==
LOC: WC 10:45
PROVIDERS: Family Provider Family Medicine; PCP Family Medicine; Visit Provider Nurse Practitioner Family
DX: Z09 Encounter for follow-up examination after completed treatment for conditions other than malignant neoplasm (principal)